=== PATIENT | female | born 1940 | race Caucasian/White ===

== ENCOUNTER 2023-09-15 22:10 | Observation (INO) | payer OTHER, SELFPAY ==
[2023-09-15 10:06] VITALS: BP 114/55
--- NOTE | 2023-09-15 13:03 | ED.GENMED ---
History of Present Illness
General
Chief Complaint: Back Pain
Source: patient
Exam Limitations: none
Time Seen by Provider: 09/15/23 12:11
Nursing documentation reviewed up to this point in time: agreed with
Travel History
Have you had any contact with someone who has COVID-19?: No
Do you have any symptoms of coronavirus? Fever > 100 degrees, chills, cough, shortness of breath, sore throat, loss of taste or smell, muscle aches, or headache?: No
History of Present Illness
History of Present Illness:
83-year-old female with past medical history of mitral regurg memory loss multiple back surgeries most recently [address] Bains. Patient is presenting with concerns of her right leg giving out when going down 3 steps landed on her right
knee. Was post to have a follow-up with spine surgeon today but missed this due to coming to the ER also claims that she soiled herself after falling. She has ongoing shooting pain down the right leg. Claims that she does feel some weakness down
the right leg denies any changes in sensation. 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 Claims that she has been able to urinate. Denies any chest pain fevers.
Past History
Past History
ED Past Medical History: Cancer (endometrial), HTN and Other (chronic back pain, restless leg)
ED Past Surgical History: Appendectomy, Gynecological and Other (cataracts)
Social History
Tobacco: Non-smoker
Alcohol: None
Drug: None
Personal:
Living: with family
Review of Systems
Review of Systems
Allergies reviewed?: Yes
All Other Systems: ROS reviewed and negative except as documented in HPI and ROS
Phy Exam
Physical Exam
Physical Exam:
GENERAL: Alert , in no apparent distress
EYE: pupils equal and reactive
NECK: Supple, no significant adenopathy.
ENT: o/p clr, mmm.
CARDIAC: Regular rate and rhythm .
LUNGS: Clear breath sounds bilaterally, no acute respiratory distress, no wheezes/rales/rhonchi
ABDOMEN: Soft, without focal tenderness, no r/g, no cvat
NEUROLOGICAL: Alert and oriented, no focal neuro deficits
SKIN: Warm and dry, skin intact.
MUSCULOSKELETAL: Dropfoot right foot slightly flexion and knee movement. No decree sensation claims that sensation is normal bilaterally. Normal appearing back no redness or warmth does have some tenderness to the right anterior knee and tibial
plateau decreased strength of the right leg compared to the left with hip d no edema, well perfused.
PSYCH: Normal and appropriate interaction.
Course
Orders/Labs/Results
Orders:
Orders
09/15/23 12:46
CR Knee- Right 4 Or More View* Urgent
Comment:
Reason For Exam: right knee pain
09/15/23 12:50
Bladder Scan- Treatment ONCE
09/15/23 13:03
Lumbar Spine, 2 or 3 View [CR Lumbar Spine 2 Or 3 Views] Urgent
Comment:
Reason For Exam: back pain surgery 1 month ago fall
09/15/23 14:45
Urinalysis Reflex To Culture Urgent
Date Specimen was Collected: 09/15/23
Time Specimen was Collected: 14:42
Urine Microscopic Reflex Cult Urgent
Urine Culture Urgent
SEAN Source: U
Specimen Description:
Date Specimen was Collected: 09/15/23
Time Specimen was Collected: 14:42
09/15/23 Dinner
Regular
At Your Request: Full Participation
09/15/23 15:59
Tramadol HCl [Ultram] 50 mg PO NOW STA
09/15/23 16:05
CT Lumbar Spine W/o Iv Contras Urgent
Comment:
Reason For Exam: recent surgery back pain, surgery recomending CT
CT Thoracic Spine W/o Iv Contr Urgent
Comment:
Reason For Exam: recent surgery back pain, surgery recomending CT
09/15/23 20:21
Oxycodone/Acetaminophen [Percocet 5/325] 1 tablet PO NOW STA
09/15/23 20:44
BMP [Basic Metabolic Panel] Urgent
CBC/With Diff [Complete Blood Count/With Diff] Urgent
09/15/23 21:35
Admit/Transfer Patient As Directed
Co-Sign Provider:
Level of Care: Observation services
Assign to:: Medical/Surgical
Physician / Group: ki bal
Diagnosis: fall with r knee pain acute on chronic amb dysfunction
Code Status As Directed
Resuscitation Status: Full Code
09/15/23 21:41
Ice Application [Cold Application] As Directed
Location: right knee
Frequency: Intermittent q4h
Duration of Application: No longer than 20 minutes
Method of Delivery: Ice packs
09/15/23 21:46
Cephalexin Monohydrate [Keflex] 500 mg PO NOW STA
09/15/23 22:37
Acetaminophen [Tylenol] 650 mg PO Q4HPRN PRN
Melatonin 5 mg PO HSPRN PRN
Tramadol HCl [Ultram] 50 mg PO Q6HPRN PRN
09/15/23 22:37
Activity As Directed
Activity Level: With Assistance
Comment: uses walker
Pneumatic Compression Sleeves As Directed
Type: Knee high
Vital Signs As Directed
Frequency: Per unit guidelines
Wound Care As Directed
Location of Wound: right knee abrasion
Treatment of Wound: wash with soap and water apply bandaid
Ot Eval And Treat Routine
Pt Eval And Treat Routine
Activity Level: With Assistance
DX Deep Vein Thrombosis Video Routine
09/15/23 23:00
Pramipexole [Mirapex, Generic] 3 mg PO HS
09/16/23 08:00
Carvedilol [Coreg] 3.125 mg PO BID
Cephalexin Monohydrate [Keflex] 500 mg PO QID
Cyanocobalamin [Vitamin B-12] 1,000 mcg PO DAILY
Multivitamin [Theragran] 1 tablet PO DAILY
Pyridoxine [Vitamin B-6] 100 mg PO DAILY
vitamin A-vitamin C-vit E-min 1 tablet PO DAILY
Abnormal Lab Results
09/15/23 09/15/23
14:45 20:44
RBC 3.27 L 10^6/uL
(4.20-5.40)
Hgb 9.0 L g/dL
(12.0-16.0)
Hct 27.9 L %
(37.0-47.0)
MCHC 32.3 L g/dL
(33.0-37.0)
Absolute Lymphs (auto) 0.8 L 10^3/uL
(1.2-3.4)
Neutrophils % 76.1 H %
(42.2-75.2)
Lymphocytes % 13.7 L %
(20.5-51.1)
Sodium 133 L mmol/L
(135-145)
BUN 24 H mg/dl
(7-17)
Glucose 120 H mg/dl
(70-99)
Urine Ketones Trace A
(Negative)
Ur Occult Blood Reflex 3+ A
(Negative)
Leukocyte Esterase Rfl 2+ A
(Negative)
Urine RBC 30-40 A /HPF
(0-2)
Urine WBC (Reflex) 30-40 A /HPF
(0-5)
Urine Bacteria (Reflex) Many A
(Negative)
09/15/23 20:44
09/15/23 20:44
Vital Signs
Initial and Last Documented VS:
Initial Vital Signs
Temp Pulse Resp BP Pulse Ox
99.1 F 89 18 114/55 99
09/15/23 10:06 09/15/23 10:06 09/15/23 10:06 09/15/23 10:06 09/15/23 10:06
Last Documented Vital Signs
Temp Pulse Resp BP Pulse Ox
98.3 F 74 16 122/67 98
09/18/23 07:24 09/18/23 07:24 09/18/23 07:24 09/18/23 07:24 09/18/23 07:24
MDM/Problems Addressed
MDM/Problems Addressed:
83-year-old female presenting to the emergency department today with concerns of right leg giving out falling down 3 steps landing on her right knee prior to arrival denies hitting her head or losing consciousness not on blood thinners. Does have
some mild trauma on her right knee. Was unable to stand up was brought in by EMS. Patient did recently have a back surgery [address] Bains denies any complications from this recently discharged from acute rehab 1 week ago. There is
that she soiled her self when she was on the ground. Patient assessed here does have good rectal tone able to urinate well comfortable in general but unable to ambulate secondary to pain. Her surgeon was contacted they recommended getting a CT
scan to evaluate the surgical correction this without emergent findings patient be admitted concerning she is unable to ambulate for further pain management and physical therapy evaluation.
*Critical Care Note
Total Time (30-74mins, 75-104mins- exclusive of procedures): Not Applicable
ED Attending Note
-
Portions of this chart may have been created with voice recognition software.� Occasional wrong word or��sound alike� substitutions may have occurred due to the inherent limitations of voice recognition software.
Discharge Plan
Departure
Patient Disposition: Admit
Date of Disposition: 09/15/23
Time of Disposition: 20:49
Admit to: Med/Surg
Admit to doctor: Sujit
Presentation/result/management discussed w/ accepting MD/DO: Hospitalist
Patient with high blood pressure during this ER visit?: No
Condition: Good
Covid-19: Not Applicable
Discharge Problem:
Back pain, Ambulatory dysfunction
Interventions
Interventions:
*Risk Screen - Suicide Last Done: 09/15/23 22:44
*General Assessment Last Done: 09/15/23 19:03
*Neglect/Abuse Screening Last Done: 09/15/23 19:03
ED- Fall Risk Assessment Last Done: 09/15/23 22:46
*ED COVID-19 Vaccine History Last Done: 09/15/23 22:46
*Nursing Disposition Last Done: 09/15/23 22:46
ED-Musculoskeletal Assessment Last Done: 09/15/23 19:03
Discharge Date and Time
Discharge Date/Time: 09/15/23 22:47
[2023-09-15 15:00] LABS: Urine Albumin Negative (Neg - Trace); Urine Bilirubin Negative (Negative); Urine Character Very Cloudy (Clear); Urine Color Yellow; Urine Glucose Negative (Negative); Urine Ketone Trace (Negative); Urine Leukocyte 2+ (Negative); Urine Nitrite Negative (Negative); Urine Occult Blood 3+ (Negative); Urine Specific Gravity 1.015 (<1.030); Urine Urobilinogen Negative (Neg - 1+)
[2023-09-15 15:10] LABS: Urine Squamous Cell 16-20 /LPF (Few)
[2023-09-15 15:15] LABS: Urine Bacteria Many (Negative); Urine Red Blood Cell 30-40 /HPF (0-2); Urine White Cell 30-40 /HPF (0-5)
[2023-09-15] MEDS: ULTRAM 50 MG PO (16:19)
[2023-09-15 16:36] VITALS: BP 137/64
[2023-09-15 18:46] VITALS: BP 117/54
[2023-09-15 20:02] VITALS: BP 132/60
--- NOTE | 2023-09-15 20:12 | EDRN ---
Report received, introduced myself to patient, she needed to have a bowl movement, was placed on bed mcgrath, small soft formed stool noted and some urine, patient cleaned up, new linen placed on bed, patient does not feel she can get up and ambulate to
go home, Ed, PA aware
[2023-09-15 20:51] LABS: % Basophils 0.2 % (0-2); % Eosinophils 1.5 % (0-6); % Immature Granulocytes 0.3 % (0-0.5); % Lymphocytes 13.7 % (20.5-51.1); % Monocytes 8.2 % (1.7-9.3); % Neutrophils 76.1 % (42.2-75.2); Absolute Eosinophils 0.1 10^3/uL (0-0.7); Absolute Lymphocytes 0.8 10^3/uL (1.2-3.4); Absolute Monocytes 0.5 10^3/uL (0.1-0.6); Absolute Neutrophils 4.7 10^3/uL (1.4-6.5); Hematocrit 27.9 % (37.0-47.0); Mean Corp Hgb Conc. 32.3 g/dL (33.0-37.0); Mean Corpuscular Hgb 27.5 pg (27.0-31.0); Mean Corpuscular Volume 85.3 fL (81.0-99.0); Mean Platelet Volume 9.3 fL (7.4-10.4); Nucleated Red Blood Cells % 0 %; Platelet Count 261 10^3/uL (130-400); Red Blood Cell Count 3.27 10^6/uL (4.20-5.40); Red Cell Dist. Width 14.3 % (11.5-14.5); White Blood Cell Count 6.1 10^3/uL (4.8-10.8)
[2023-09-15 21:05] LABS: Blood Urea Nitrogen 24 mg/dl (7-17); Calcium 8.9 mg/dl (8.4-10.2); Carbon Dioxide 29 mmol/L (22-30); Chloride 99 mmol/L (98-107); Glucose 120 mg/dl (70-99); Potassium 4.1 mmol/L (3.5-5.1); Sodium 133 mmol/L (135-145); eGFR > 60.00
--- NOTE | 2023-09-15 21:06 | HPS.HSE ---
Addendum entered and electronically signed by Luis Angel Orellana MD 09/15/23 21:50:
Patient seen and examined independently with PILLOWCASE CUTTER. 83-year-old female past medical history of chronic back pain status post laminectomy 1 month ago, right foot drop, restless leg syndrome, presenting after her right leg gave out going down 3 steps
landing on her right knee. Complaining of pain of her right knee at this time. No back pain. Knee x-ray negative. Lumbar spine x-ray/lumbar spine CT/thoracic spine CT negative for acute pathology. Urinalysis shows evidence of UTI although no
symptoms. Continue Tylenol and tramadol for pain. PT/OT. Urine culture Keflex for UTI.
Original Note:
Family Physician
-
Family Physician: Mini Diaz
Chief Complaint
-
right leg gave out , fall right knee pain
History of Present Illness
83-year-old female complaining of her right leg giving out while going down 3 steps landing on her bent right knee in the garage. She states her left buttocks was on 1 part of the step and her knee was bent on the ground. She was unable to lift
herself up and her was unable to lift her up. She did not attempt to extend her knee and left it bent until EMS arrived. She states she has been using a walker since January 2023 after a lumbar laminectomy surgery. She has a right knee
contusion with right lower anterior justice abrasion. She was able to stand at the bedside holding onto my arm lifting both legs and walking to the left but she is very anxious and worried about falling. She is status post spinal fusion L2 S2 on 08/[address] Bains at [facility] and was discharged from rehab approximately 1 week ago. She was due to have follow-up appointment with a spinal surgeon today but came to ER after her fall. She reports a chronic dropfoot on the right leg since
prior to January 2023 of unknown origin. She states she had the urge to go to the bathroom and was incontinent of stool because she was unable to get up and walk. She denies fever, chills, chest pain, palpitations, shortness of breath, cough,
abdominal pain, nausea, vomiting, diarrhea. She has past medical history of hypertension, anemia, B12 deficiency, chronic back pain, restless leg syndrome, insomnia, chronic dropfoot right leg.
Medical History
Past Medical History
Past Medical History: Reports Other
Additional Past Medical History:
hypertension
anemia, B12 deficiency
chronic back pain
restless leg syndrome,
insomnia
chronic dropfoot right leg
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
Hx endometrial cancer status post hysterectomy 2017 with chemo, radiation, proton therapy
Past Surgical History: Reports Other
Additional Past Surgical History:
Status post spinal fusion L2-S2 on 08/12 Dr ac Snyder
Laminectomy lumbar January 2023
endometrial cancer status post hysterectomy 2016
Social History
Tobacco: Non-smoker
Alcohol: Occasional (Wine)
Drug: None
Personal:
Living: With Family ( [place])
Employment: Retired
Family History
Family History: Other (Father unknown, mother old age 96)
Allergies / Home Medications
Allergies reflects when Allergies were last updated in [facility].
Home Medications with original date entered in [facility]
Allergy/Medication List:
Allergies
Allergy/AdvReac Type Severity Reaction Status Date / Time
No Known Allergies Allergy Verified 09/15/23 10:06
Home Medications
pramipexole 1.5 mg tablet 3 mg PO HS Muscle spasms 07/17/22
Vitamin D3 1 tab PO SA Supplement 01/08/23
cyanocobalamin (vitamin B-12) 1,000 mcg tablet (Vitamin B-12) 1,000 mcg PO DAILY Supplement 01/08/23
melatonin 5 mg tablet 5 mg PO HS PRN sleep 01/08/23
pyridoxine (vitamin B6) 100 mg tablet (Vitamin B-6) 100 mg PO DAILY Supplement 01/08/23
vitamin A-vitamin C-vit E-min tablet 1 tab PO DAILY Supplement 01/08/23
carvedilol 3.125 mg tablet 3.125 mg PO BID 09/15/23
cyanocobalamin (vitamin B-12) 1,000 mcg/mL injection solution 1,000 mcg IM MONTHLY 09/15/23
[id number]-jbj-[id number] 0.4 mg-calcium 162 mg-iron 18 sc-[id number]-mxjspf tablet 1 tab PO DAILY 09/15/23
tramadol 50 mg tablet 50 mg PO Q6H PRN moderate pain 09/15/23
Review of Systems
-
History Source: Patient
A 12 point ROS was completed and negative except as noted: Yes
Constitutional: Denies Fever or Chills
EENT: Denies Sore Throat or Runny Nose
Respiratory: Denies Cough or Trouble Breathing
Cardiac: Denies Chest Pain, Diaphoresis, Palpitations or Syncope
Abdomen/GI: Denies Abdominal Pain, Nausea, Vomiting, Diarrhea, Constipated, Bloody Stools or Black Stools
: Denies Dysuria, Frequency, Flank Pain, Incontinence or Difficulty Voiding
Musculoskeletal: Reports Joint Pain (Right knee pain, slight edema status post fall) and Other
Skin: Reports Other (Right knee contusion/anterior tib-fib abrasion); Denies Itching or Rash
Neurological: Reports Weakness (Brief episode right leg prior to fall); Denies Dizzy or Headache
Endocrine: Reports No Symptoms
Hematologic/Lymphatic: Reports No Symptoms
Psych: Reports Anxiety
Physical Exam
Vital Signs
Vital Signs
Temp Pulse Resp BP Pulse Ox
99.1 F 83 16 117/54 97
09/15/23 10:06 09/15/23 18:46 09/15/23 18:46 09/15/23 18:46 09/15/23 18:46
Physical Exam
General: Conversant, Pain and Other (Anxious); No Fever
HEENT: NormoCephalic, Anicteric, Moist mucous membranes, Atraumatic, PERRLA, Hi-Nella Conjunctivae, No Ptosis and Neck Nontender
Respiratory: Clear; No Wheezes, Rales or Rhonchi
Cardiac: S1/S2 and Regular Rhythm; No Murmur, Rub, Gallop or Peripheral Edema
Breast: Deferred by me
GI: Soft, Non Tender, Non Distended, Normal Bowel Sounds and No Hepatosplenomegaly
Rectal: Deferred by Provider
Genito-urinary: Deferred by me
Musculoskeletal: No Clubbing, No Cyanosis and Edema, Right Lower Extremity (Right knee contusion/anterior tib-fib abrasion); No Edema, Left Upper Extremity, Edema, Right Upper Extremity or Edema, Left Lower Extremity
Skin: Warm and Dry; No Rash
Neuro: AO x 3, No Motor Deficits, Nonfocal/grossly intact, Cranial Nerves Intact and No Sensory Deficits; No Slurred Speech, Facial Droop or Tremors
Psych: Anxious
Laboratory Results
-
09/15/23 20:44
09/15/23 20:44
Data Reviewed
-
Diagnostic Radiology: Report Reviewed by me
CT Scan: Report Reviewed by me
Lab Data: Labs Reviewed by me
Impression/Plan
-
Impression/plan:
Observation MedSurg
#Acute on chronic ambulatory dysfunction/right knee contusion/abrasion
#Chronic dropfoot right leg unknown etiology prior to January 2023
#Status post spinal fusion L2-S2 on 08/12 Dr ac Snyder
-Continue tramadol 50 mg every 6 hours as needed pain
-Local wound care with soap and water, apply Band-Aid
- ice to right knee
-Tylenol as needed
-PT/OT/case management consult
-Patient has home care with [facility]
CT lumbar spine without contrast:
Limited study due to beam artifact, extensive metal hardware from L2 to sacrum with placement of disc spacers at L3-L4, L4-L5, and L5-S1. L4 inferior endplate and L5 superior endplate irregularity similar to prior MRI
CT thoracic spine: Degenerative changes no acute fractures
Lumbar spine x-ray: Status post spinal fusion L2-S2 improved alignment from previous MRI 6 months ago
Right knee x-ray: Significant DJD. Small joint effusion
#Pyuria Acute
-Follow urine culture
- keflex 500 mg q6h
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
#Hx endometrial cancer status post hysterectomy 2016 with chemo, radiation, proton therapy
Used to take gabapentin but no longer does
-Continue tramadol every 6 as needed per med list
#Anemia-normocytic
Hgb 9 baseline appears 10
-Continue B12 supplement daily
#HTN benign
117/54
Continue carvedilol 3.125 mg p.o. twice daily
#Restless leg syndrome
-Continue pramipexole 3 mg at bedtime
#Insomnia
-Continue melatonin 5 mg at bedtime as needed
DVT prophylaxis
SCDs
full code
[2023-09-15] MEDS: PERCOCET 5/325 1 TABLET PO (21:18)
[2023-09-15 21:25] VITALS: BP 130/60
--- NOTE | 2023-09-15 21:38 | EDRN ---
Ghazala ENGINEERING DOCUMENTATION SPECIALIST in at bedside working on admission, Ghazala wanted to stand patient, patient was able to stand and lift both legs with ease and no pain, patient then back in bed resting comfortably with call sheriff in reach, will be admitted and PT see her
tomorrow.
[2023-09-15 22:44] VITALS: BMI 22.2
[2023-09-15 22:53] VITALS: BP 121/54
[2023-09-15] MEDS: MIRAPEX, GENERIC 3 MG PO (23:10)
[2023-09-15] MEDS: KEFLEX 500 MG PO (23:10)
--- NOTE | 2023-09-16 01:05 | PTCARENOTE ---
Patient received in bed from ED at 2044. AAOx3, Pt pulled over from stretcher to bed. Oriented to room and call sheriff.
[2023-09-16 07:00] VITALS: BP 121/57
[2023-09-16] MEDS: VITAMIN B-6 100 MG PO (09:33)
[2023-09-16] MEDS: KEFLEX 500 MG PO ×4 (09:33→21:04)
[2023-09-16] MEDS: THERAGRAN 1 TABLET PO (09:33)
[2023-09-16] MEDS: COREG 3.125 MG PO (09:34)
[2023-09-16] MEDS: VITAMIN B-12 1000 MCG PO (09:34)
--- NOTE | 2023-09-16 10:16 | W.PN.HOSP.TC ---
Today's Communication/Plan
-
see outlined plan
Assessment / Plan
Assessment / Plan
Assessment:
Acute on chronic ambulatory dysfunction/right knee contusion/abrasion
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
Status post spinal fusion L2-S2 on 08/12 (Dr Bains with [facility])
- CT L/T spine without acute fractures, intact hardware
- R knee Xray with DJD, small effusion, no fracture
- check L foot xray to evaluate toe/foot pain
- Prn Tramadol for pain
- ICE and Tylenol as well
- PT/OT - current with [facility] and recent rehab at [facility]
UTI with incontinence
- continue Keflex, await culture
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
Hx endometrial cancer status post hysterectomy 2017 with chemo, radiation, proton therapy
- Used to take gabapentin but no longer does
- Continue tramadol every 6 as needed per med list
Anemia-normocytic
- Hgb 9 baseline appears 10. monitor Hb
- Continue B12 supplement daily
Essential HTN
- continue BB Coreg
RLS - continue Pramipexole HS
Insomnia
- continue melatonin 5 mg at bedtime as needed
DVT prophylaxis: SCDs
Code: Full
Anticipated Discharge: Within 24 hours
Subjective/Interval History
-
Date of Service: September 16, 2023
reports pain improving, able to bend knee better
reports some L great toe pain - injured it during fall
denies any other complaints
Objective Data
-
Vital Signs:
Vital Signs
Temp Pulse Resp BP Pulse Ox
99.2 F 84 18 121/59 97
09/16/23 07:00 09/16/23 09:34 09/16/23 07:00 09/16/23 09:34 09/16/23 07:00
I&O
09/15/23 09/16/23 09/17/23
06:59 06:59 06:59
Intake Total 120 / 120
Output Total 0 / 0
Balance 120 / 120
Physical Exam
-
General: No Apparent Distress
HEENT: Normocephalic and Atraumatic
Respiratory: Negative Wheezes or Rales
Cardiac: Regular Rhythm and S1/S2
GI: Soft
Genito-urinary: No Costovertebral Tender
Musculoskeletal: No Edema and Other (R knee ROM intact, no effusion. L great toe with tenderness with extension/flexion)
Neuro: AO x 3
Psych: Calm
Data Reviewed
-
Total Time Spent with Patient (in minutes): 45
Labs: Labs Reviewed by me
--- NOTE | 2023-09-16 15:42 | CM ---
CHart reviewed. Met with Pt at bedside
Pt lives with her in a 2 story home, currently has a FF set up
Prior to admission pt needed some assist. Ambulates with rolling walker, preparing small meals, able to perform adl's
DME includes a cane, rolling walker, commode, shower chair
Was at [facility] rehab earlier in year after a fall
Current with [facility]
Will have ride at d/c
PCP - Dr Natividad Diaz
Pharm - [facility]
Plan - TBD pending PT/OT recs
[2023-09-16 15:55] VITALS: BP 115/52
[2023-09-16 16:04] VITALS: BP 125/65; PULSE 88
[2023-09-16 16:11] VITALS: BP 128/65; PULSE 88
[2023-09-16] MEDS: COREG PO (20:34)
[2023-09-16 20:35] VITALS: BP 100/59
[2023-09-16] MEDS: ULTRAM 50 MG PO (21:04)
[2023-09-16] MEDS: MIRAPEX, GENERIC 3 MG PO (21:04)
[2023-09-16 22:30] VITALS: BP 123/58
[2023-09-17] MEDS: ULTRAM 50 MG PO (06:54)
[2023-09-17 07:00] VITALS: BP 143/78
[2023-09-17] MEDS: KEFLEX 500 MG PO ×4 (08:21→21:23)
[2023-09-17] MEDS: VITAMIN B-12 1000 MCG PO (08:21)
[2023-09-17] MEDS: THERAGRAN 1 TABLET PO (08:21)
[2023-09-17] MEDS: COREG 3.125 MG PO ×2 (08:21→20:21)
[2023-09-17] MEDS: TYLENOL 650 MG PO (08:22)
[2023-09-17] MEDS: VITAMIN B-6 100 MG PO (08:22)
[2023-09-17 08:55] LABS: Hematocrit 29.4 % (37.0-47.0); Hemoglobin 9.4 g/dL (12.0-16.0); Mean Corpuscular Hgb 27.5 pg (27.0-31.0); Mean Platelet Volume 9.5 fL (7.4-10.4); Platelet Count 248 10^3/uL (130-400); Red Blood Cell Count 3.42 10^6/uL (4.20-5.40); Red Cell Dist. Width 14.3 % (11.5-14.5); White Blood Cell Count 4.4 10^3/uL (4.8-10.8)
[2023-09-17 09:21] LABS: Blood Urea Nitrogen 17 mg/dl (7-17); Calcium 8.5 mg/dl (8.4-10.2); Carbon Dioxide 29 mmol/L (22-30); Chloride 103 mmol/L (98-107); Estimated Creatinine Clearance 60 ml/min; Glucose 91 mg/dl (70-99); Sodium 134 mmol/L (135-145); eGFR > 60.00
--- NOTE | 2023-09-17 10:36 | W.PN.HOSP.TC ---
Today's Communication/Plan
-
Medically stable for DC pending SNF
Assessment / Plan
Assessment / Plan
Assessment:
Acute on chronic ambulatory dysfunction/right knee contusion/abrasion
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
Status post spinal fusion L2-S2 on 08/12 (Dr Bains with [facility])
- CT L/T spine without acute fractures, intact hardware
- R knee Xray with DJD, small effusion, no fracture
- suspect weakness/fall maybe related to UTI
- Prn Tramadol for pain
- ICE and Tylenol as well
- PT/OT - current with [facility] and recent rehab at [place]. SNF recommended and pt/family agreeable.
UTI with incontinence
- continue Keflex, day 2
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
Hx endometrial cancer status post hysterectomy 2017 with chemo, radiation, proton therapy
- Used to take gabapentin but no longer does
- Continue tramadol every 6 as needed per med list
Anemia-normocytic
- Hgb 9 baseline appears 10. monitor Hb
- Continue B12 supplement daily
Essential HTN
- continue BB Coreg
RLS - continue Pramipexole HS
Insomnia
- continue melatonin 5 mg at bedtime as needed
DVT prophylaxis: SCDs
Code: Full
Anticipated Discharge: 24 - 48 hours
Subjective/Interval History
-
Date of Service: September 17, 2023
no new complaints, pain controlled
agreeable to SNF
Objective Data
-
Labs:
Laboratory Results
09/17/23
07:59
WBC 4.4 L
Hgb 9.4 L
Hct 29.4 L
Plt Count 248
Sodium 134 L
Potassium 4.0
Chloride 103
Carbon Dioxide 29
BUN 17
Creatinine 0.7
Glucose 91
Calcium 8.5
Vital Signs:
Vital Signs
Temp Pulse Resp BP Pulse Ox
97.9 F 82 18 143/78 99
09/17/23 07:00 09/17/23 07:00 09/17/23 07:00 09/17/23 07:00 09/17/23 08:20
I&O
09/16/23 09/17/23 09/18/23
06:59 06:59 06:59
Intake Total 120 / 120 1060 / 1060
Output Total 0 / 0
Balance 120 / 120 1060 / 1060
Physical Exam
-
General: No Apparent Distress
HEENT: Normocephalic and Atraumatic
Respiratory: Negative Wheezes or Rales
Cardiac: Regular Rhythm and S1/S2
GI: Soft and Nontender
Genito-urinary: No Costovertebral Tender
Musculoskeletal: No Edema
Neuro: AO x 3
Psych: Calm
Data Reviewed
-
Total Time Spent with Patient (in minutes): 45
Labs: Labs Reviewed by me
--- NOTE | 2023-09-17 10:52 | CM ---
Patient seen bedside.
PT/OT recommending skilled rehab.
Discussed options.
Referrals placed.
Plan: skilled rehab when stable, patient will require insurance auth.
[2023-09-17 15:54] VITALS: BP 105/48
[2023-09-17] MEDS: MIRAPEX, GENERIC 3 MG PO (21:23)
[2023-09-17 22:30] VITALS: BP 114/57
[2023-09-18] MEDS: ULTRAM 50 MG PO ×2 (01:08→17:29)
[2023-09-18 07:24] VITALS: BP 122/67
[2023-09-18 08:11] LABS: Hematocrit 29.5 % (37.0-47.0); Hemoglobin 9.7 g/dL (12.0-16.0); Mean Corp Hgb Conc. 32.9 g/dL (33.0-37.0); Mean Corpuscular Volume 85.3 fL (81.0-99.0); Mean Platelet Volume 9.3 fL (7.4-10.4); Platelet Count 253 10^3/uL (130-400); Red Blood Cell Count 3.46 10^6/uL (4.20-5.40); White Blood Cell Count 4.9 10^3/uL (4.8-10.8)
[2023-09-18 08:43] LABS: Blood Urea Nitrogen 20 mg/dl (7-17); Calcium 8.7 mg/dl (8.4-10.2); Carbon Dioxide 29 mmol/L (22-30); Chloride 101 mmol/L (98-107); Estimated Creatinine Clearance 60 ml/min; Glucose 94 mg/dl (70-99); Potassium 4.4 mmol/L (3.5-5.1); Sodium 133 mmol/L (135-145); eGFR > 60.00
[2023-09-18] MEDS: KEFLEX 500 MG PO ×4 (08:51→21:28)
[2023-09-18] MEDS: COREG 3.125 MG PO ×2 (08:51→20:14)
[2023-09-18] MEDS: VITAMIN B-12 1000 MCG PO (08:51)
[2023-09-18] MEDS: VITAMIN B-6 100 MG PO (08:51)
[2023-09-18] MEDS: THERAGRAN 1 TABLET PO (08:51)
--- NOTE | 2023-09-18 11:54 | CM ---
Addendum entered by Dinorah Rodriguez 09/18/23 13:40:
clinicals faxed.
Addendum entered by Dinorah Rodriguez 09/18/23 13:21:
[employer] auth initiated- reference #[id number]
Original Note:
Patient accepted for bed at [facility] for tomorrow.
[employer] auth to be initiated.
PT/OT (P).
[facility] NPI# [id number] or [id number]
Dr Caruso [id number]
Auth to [facility] supervisior over weekend- [phone]
report# [phone]

Plan: PR once insurance authorization obtained.
--- NOTE | 2023-09-18 12:04 | W.PN.HOSP.TC ---
Today's Communication/Plan
-
Medically stable for SNF placement. CM aware.
Assessment / Plan
Assessment / Plan
Assessment:
Acute on chronic ambulatory dysfunction/right knee contusion/abrasion
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
Status post spinal fusion L2-S2 on 08/12 (Dr Bains with [facility])
- CT head negative for CVA to explain weakness
- CT L/T spine without acute fractures, intact hardware
- R knee Xray with DJD, small effusion, no fracture
- suspect weakness/fall maybe related to UTI
- Prn Tramadol for pain
- ICE and Tylenol as well
- PT/OT - current with [facility] and recent rehab at [place]. SNF recommended and pt/family agreeable.
UTI with incontinence
- continue Keflex, day 09/21
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
Hx endometrial cancer status post hysterectomy 2017 with chemo, radiation, proton therapy
- Used to take gabapentin but no longer does
- Continue tramadol every 6 as needed per med list
Anemia-normocytic
- Hgb 9 baseline appears 10. monitor Hb
- Continue B12 supplement daily
Essential HTN
- continue BB Coreg
RLS - continue Pramipexole HS
Insomnia
- continue melatonin 5 mg at bedtime as needed
DVT prophylaxis: SCDs
Code: Full
Dispo: Medically stable for SNF placement. CM aware.
Anticipated Discharge: Within 24 hours
Subjective/Interval History
-
Date of Service: September 18, 2023
no new complaints
ambulated with PT/OT today
pending SNF placement
Objective Data
-
Labs:
Laboratory Results
09/18/23
07:45
WBC 4.9
Hgb 9.7 L
Hct 29.5 L
Plt Count 253
Sodium 133 L
Potassium 4.4
Chloride 101
Carbon Dioxide 29
BUN 20 H
Creatinine 0.7
Glucose 94
Calcium 8.7
Vital Signs:
Vital Signs
Temp Pulse Resp BP Pulse Ox
98.3 F 74 16 122/67 98
09/18/23 07:24 09/18/23 07:24 09/18/23 07:24 09/18/23 07:24 09/18/23 07:24
I&O
09/17/23 09/18/23 09/19/23
06:59 06:59 06:59
Intake Total 1060 / 1060 360 / 360
Output Total 500 / 500
Balance 1060 / 1060 -140 / -140
Physical Exam
-
General: No Apparent Distress
HEENT: Normocephalic and Atraumatic
Respiratory: Negative Wheezes or Rales
Cardiac: Regular Rhythm and S1/S2
GI: Soft
Genito-urinary: No Costovertebral Tender
Neuro: AO x 3
Psych: Calm
Data Reviewed
-
Total Time Spent with Patient (in minutes): 40
Labs: Labs Reviewed by me
[2023-09-18 13:28] VITALS: BP 112/60; BP 132/80; PULSE 94
[2023-09-18 15:42] VITALS: BP 122/67
[2023-09-18 20:14] VITALS: BP 115/59
[2023-09-18] MEDS: MIRAPEX, GENERIC 3 MG PO (21:28)
[2023-09-18 23:45] VITALS: BP 110/56
[2023-09-19 07:00] VITALS: BP 107/63
[2023-09-19 08:45] LABS: Hemoglobin 10.7 g/dL (12.0-16.0); Mean Corp Hgb Conc. 32.4 g/dL (33.0-37.0); Mean Corpuscular Hgb 28.1 pg (27.0-31.0); Mean Corpuscular Volume 86.6 fL (81.0-99.0); Mean Platelet Volume 9.5 fL (7.4-10.4); Platelet Count 302 10^3/uL (130-400); Red Blood Cell Count 3.81 10^6/uL (4.20-5.40); Red Cell Dist. Width 14.2 % (11.5-14.5); White Blood Cell Count 5.5 10^3/uL (4.8-10.8)
[2023-09-19 09:15] LABS: Blood Urea Nitrogen 25 mg/dl (7-17); Calcium 9.4 mg/dl (8.4-10.2); Carbon Dioxide 29 mmol/L (22-30); Chloride 98 mmol/L (98-107); Estimated Creatinine Clearance 60 ml/min; Glucose 114 mg/dl (70-99); Potassium 4.3 mmol/L (3.5-5.1); Sodium 135 mmol/L (135-145); eGFR > 60.00
[2023-09-19] MEDS: VITAMIN B-6 100 MG PO (09:24)
[2023-09-19] MEDS: THERAGRAN 1 TABLET PO (09:24)
[2023-09-19] MEDS: KEFLEX 500 MG PO ×4 (09:24→21:27)
[2023-09-19] MEDS: COREG 3.125 MG PO ×2 (09:24→19:45)
[2023-09-19] MEDS: VITAMIN B-12 1000 MCG PO (09:24)
[2023-09-19 11:00] VITALS: BP 121/65; BP 125/58; BP 127/62; PULSE 115; PULSE 85; PULSE 94
--- NOTE | 2023-09-19 11:03 | CM ---
Addendum entered by Dinorah Rodriguez 09/19/23 14:21:
[facility] to [facility], spoke with vanessa Davis pending.
All clinicals received and being reviewed.
CM asked when to expect vanessa and was told to call back Thursday.
Original Note:
TC to [facility], their system is down, Rasheeda/intake rep refused to forward to supervisor cell maintenance.
instructed to call back in 1 hour.
CM will f/u
--- NOTE | 2023-09-19 12:21 | W.PN.HOSP.TC ---
Today's Communication/Plan
-
dizziness: decrease Tramadol and check orthostatics, add compression stockings
await SNF
Assessment / Plan
Assessment / Plan
Assessment:
Acute on chronic ambulatory dysfunction/right knee contusion/abrasion
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
Status post spinal fusion L2-S2 on 08/12 (Dr Bains with [facility])
- CT head negative for CVA to explain weakness
- CT L/T spine without acute fractures, intact hardware
- R knee Xray with DJD, small effusion, no fracture
- suspect weakness/fall maybe related to UTI
- Prn Tramadol for pain
- ICE and Tylenol as well
- PT/OT - current with [facility] and recent rehab at [place]. SNF recommended and pt/family agreeable.
Dizziness, transient
- check orthostatics; add compression therapy
- decrease Tramadol to 25mg
UTI with incontinence
- continue Keflex, day 10/22
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
Hx endometrial cancer status post hysterectomy 2016 with chemo, radiation, proton therapy
- Used to take gabapentin but no longer does
- Continue tramadol every 6 as needed per med list
Anemia-normocytic
- Hgb 9 baseline appears 10. monitor Hb
- Continue B12 supplement daily
Essential HTN
- continue BB Coreg
RLS - continue Pramipexole HS
Insomnia
- continue melatonin 5 mg at bedtime as needed
DVT prophylaxis: SCDs
Code: Full
Dispo: Medically stable for SNF placement. CM aware.
Anticipated Discharge: Within 24 hours
Subjective/Interval History
-
Date of Service: September 19, 2023
reports some dizziness last evening into this morning
BPs stable
Objective Data
-
Labs:
Laboratory Results
09/19/23
08:22
WBC 5.5
Hgb 10.7 L
Hct 33.0 L
Plt Count 302
Sodium 135
Potassium 4.3
Chloride 98
Carbon Dioxide 29
BUN 25 H
Creatinine 0.7
Glucose 114 H
Calcium 9.4
Vital Signs:
Vital Signs
Temp Pulse Resp BP Pulse Ox
98.0 F 90 18 107/63 100
09/19/23 07:00 09/19/23 07:00 09/19/23 07:00 09/19/23 07:00 09/19/23 07:00
I&O
09/18/23 09/19/23 09/20/23
06:59 06:59 06:59
Intake Total 360 / 360 240 / 240
Output Total 500 / 500
Balance -140 / -140 240 / 240
Physical Exam
-
General: No Apparent Distress
HEENT: Normocephalic and Atraumatic
Respiratory: Negative Wheezes or Rales
Cardiac: Regular Rhythm and S1/S2
GI: Soft
Genito-urinary: No Costovertebral Tender
Musculoskeletal: No Edema
Neuro: AO x 3
Psych: Calm
Data Reviewed
-
Total Time Spent with Patient (in minutes): 41
Labs: Labs Reviewed by me
[2023-09-19] MEDS: IMODIUM 2 MG PO (17:22)
[2023-09-19] MEDS: TYLENOL 1000 MG PO ×2 (17:22→21:27)
[2023-09-19] MEDS: MIRAPEX, GENERIC 3 MG PO (21:27)
[2023-09-19 23:36] VITALS: BP 97/46
[2023-09-20] MEDS: ULTRAM 25 MG PO (04:41)
[2023-09-20 07:55] VITALS: BP 112/72; BP 121/67; BP 128/59; PULSE 100; PULSE 110; PULSE 66
[2023-09-20] MEDS: THERAGRAN 1 TABLET PO (08:04)
[2023-09-20] MEDS: VITAMIN B-12 1000 MCG PO (08:04)
[2023-09-20] MEDS: KEFLEX 500 MG PO ×2 (08:04→12:37)
[2023-09-20] MEDS: COREG 3.125 MG PO (08:04)
[2023-09-20] MEDS: TYLENOL 1000 MG PO ×3 (08:04→21:29)
[2023-09-20] MEDS: VITAMIN B-6 100 MG PO (08:04)
--- NOTE | 2023-09-20 11:59 | W.PN.HOSP.TC ---
Today's Communication/Plan
-
reduce Coreg to 3.125mg daily in AM (stop PM dose) - see if this helps dizziness
await placement
Assessment / Plan
Assessment / Plan
Assessment:
Acute on chronic ambulatory dysfunction/right knee contusion/abrasion
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
Status post spinal fusion L2-S2 on 08/12 (Dr Bains with [facility])
- CT head negative for CVA to explain weakness
- CT L/T spine without acute fractures, intact hardware
- R knee Xray with DJD, small effusion, no fracture
- suspect weakness/fall maybe related to UTI
- Prn Tramadol for pain
- ICE and Tylenol as well
- PT/OT - current with [facility] and recent rehab at [place]. SNF recommended and pt/family agreeable.
Dizziness, transient
- continue compression therapy
- decrease Tramadol to 25mg
- trial off PM Coreg dose and assess
UTI with incontinence
- completed Keflex course
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
Hx endometrial cancer status post hysterectomy 2017 with chemo, radiation, proton therapy
- Used to take gabapentin but no longer does
- Continue tramadol every 6 as needed per med list
Anemia-normocytic
- Hgb 9 baseline appears 10. monitor Hb
- Continue B12 supplement daily
Essential HTN
- continue BB Coreg
RLS - continue Pramipexole HS
Insomnia
- continue melatonin 5 mg at bedtime as needed
DVT prophylaxis: SCDs
Code: Full
Dispo: Medically stable for SNF placement. CM aware.
Anticipated Discharge: Within 24 hours
Subjective/Interval History
-
Date of Service: September 20, 2023
reports some mild dizziness at times
noted low BP after PM Coreg dose
Objective Data
-
Vital Signs:
Vital Signs
Temp Pulse Resp BP Pulse Ox
98.2 F 66 16 128/59 98
09/20/23 07:55 09/20/23 08:04 09/20/23 07:55 09/20/23 08:04 09/20/23 07:55
I&O
09/19/23 09/20/23 09/21/23
06:59 06:59 06:59
Intake Total 240 / 240 1919
Balance 240 / 240 1919
Physical Exam
-
General: No Apparent Distress
HEENT: Normocephalic and Atraumatic
Respiratory: Negative Wheezes
Cardiac: Regular Rhythm
GI: Soft
Genito-urinary: No Costovertebral Tender
Neuro: AO x 3
Psych: Calm
Data Reviewed
-
Total Time Spent with Patient (in minutes): 42
Labs: Labs Reviewed by me
[2023-09-20] MEDS: FEOSOL 325 MG PO (15:38)
[2023-09-20 15:42] VITALS: BP 114/51
[2023-09-20] MEDS: MIRAPEX, GENERIC 3 MG PO (21:31)
[2023-09-20 23:56] VITALS: BP 110/48
[2023-09-21 07:30] VITALS: BP 117/56
[2023-09-21] MEDS: TYLENOL 1000 MG PO (08:37)
[2023-09-21] MEDS: VITAMIN B-12 1000 MCG PO (08:37)
[2023-09-21] MEDS: VITAMIN B-6 100 MG PO (08:37)
[2023-09-21] MEDS: COREG 3.125 MG PO (08:38)
[2023-09-21] MEDS: THERAGRAN 1 TABLET PO (08:38)
[2023-09-21] MEDS: FEOSOL 325 MG PO (08:38)
--- NOTE | 2023-09-21 10:27 | W.DCSUMMARY ---
Discharge Summary
Discharge Data
Date of Admission: 09/15/23
Date of Discharge: 09/21/23
-
Pending Results: No
Hospital Course
83 years old female presented after mechanical fall. Patient had history of restless leg syndrome, neuropathy and gait dysfunction. Imaging studies including head scan, scan of the thoracic and lumbar spine, radiography of the right foot and the
left knee did not show acute changes but findings consistent with chronic changes and related to her previous lumbar surgery. No acute dislocation or fracture seen on the imaging studies. She did not have leukocytosis. She did not have fever.
Urine test was consistent with possible urinary tract infection, given empiric antibiotic. Urine culture did not show any growth. Patient remained hemodynamically stable. She was advised to take half the dose of tramadol to avoid further
dizziness/weakness. Patient reported restless leg syndrome. She was taking maximum dose of pramipexole. Patient was advised to seek neurologist evaluation in near future. She was started empirically on iron tablet, given prophylactic laxative.
Iron level and magnesium were normal. She was evaluated by physical therapy and recommended [facility] facility. Patient was discharged in a stable condition.
Physical Exam
-
General: No Apparent Distress
HEENT: Normocephalic and Atraumatic
Respiratory: Negative Wheezes or Rales
Cardiac: Regular Rhythm and S1/S2
GI: Soft and Nontender
Genito-urinary: No Costovertebral Tender
Musculoskeletal: No Edema
Neuro: AO x 3, followed commands.
Psych: Calm, no agitation.
Total discharge time spent to see the patient, examine the patient on the floor, review data and lab results, discuss treatment plan with patient, nursing staff and nurse case management around 65 minutes
Discharge Plan
-
Patient Disposition: Group Home/SNF
Discharge Diagnosis/Procedures: Gait dysfunction
Restless leg syndrome
Diet: As tolerated
Referrals:
Mini Diaz DO [Family Provider] - in two to three weeks
Daniel Rocha MD [Active] - in one to two weeks (For restless leg syndrome)
Prescriptions:
New
tramadol 50 mg Tablet
25 mg PO Q6HPRN PRN (Reason: moderate pain) Qty: 10 0RF
acetaminophen [Tylenol Extra Strength] 500 mg Tablet
1,000 mg PO TID Qty: 10 0RF
ferrous sulfate [FeroSul] 325 mg (65 mg iron) Tablet
325 mg PO DAILY Qty: 30 0RF
senna 8.6 mg capsule
8.6 mg PO HS Qty: 30 0RF
Continued
pramipexole 1.5 mg tablet
3 mg PO HS
cyanocobalamin (vitamin B-12) [Vitamin B-12] 1,000 mcg Tablet
1,000 mcg PO DAILY
pyridoxine (vitamin B6) [Vitamin B-6] 100 mg Tablet
100 mg PO DAILY
Ocuvite Tablet
1 tab PO DAILY
melatonin 5 mg Tablet
5 mg PO HS PRN (Reason: sleep)
Vitamin D3
1 tab PO SA
carvedilol 3.125 mg tablet
3.125 mg PO BID
cyanocobalamin (vitamin B-12) 1,000 mcg/mL solution
1,000 mcg IM MONTHLY
Centrum 0.4-162-18 mg Tablet
1 tab PO DAILY
Discontinued
tramadol 50 mg tablet
50 mg PO Q6H PRN (Reason: moderate pain)
Patient Comments:
09/15/2023: last filled 09/04/23, 20 tabs for 5 days from [facility]
Discharge Orders:
Discharge Patient (As Directed); Ordered 09/21/23
Ordered By: Jayesh Carpenter
--- NOTE | 2023-09-21 10:27 | CM ---
[facility] #[id number] from 09/21/23 to 09/23/23 .NRD 09/24/23 call No Kennedyan at [phone] and fax [phone].
Information given to [facility] bed available today.
Spoke with Hunter [phone] he agreed with dc to [facility] today. He requested ambulance transport.As per pt is confused.
Medical nec forms sent to floor.
[facility]
report [phone]
fax [phone]
PLAN To [facility] via ambulance
[2023-09-21 11:18] LABS: Iron 135 ug/dl (37-170)
[2023-09-21 11:30] VITALS: BP 123/67
[2023-09-21] MEDS: PREVNAR 20 0.5 ML IM (12:23)
== END 2023-09-21 15:02 ==
LOC: 4 WEST ACU 22:10
PROVIDERS: Internal Medicine; Physician Assistant; ADMITTING PHYSICIAN Hospitalist; ATTENDING PHYSICIAN Internal Medicine; EMERGENCY PHYSICIAN Student in an Organized Health Care Education/Training Program; FAMILY PHYSICIAN Family Medicine
DX: S80.01XA Contusion of right knee, initial encounter (principal); S80.211A Abrasion, right knee, initial encounter; R26.89 Other abnormalities of gait and mobility; M17.11 Unilateral primary osteoarthritis, right knee; N39.0 Urinary tract infection, site not specified; R32 Unspecified urinary incontinence; R42 Dizziness and giddiness; I10 Essential (primary) hypertension; G25.81 Restless legs syndrome; G89.29 Other chronic pain; M21.371 Foot drop, right foot; E53.8 Deficiency of other specified B group vitamins; G47.00 Insomnia, unspecified; G62.0 Drug-induced polyneuropathy; T45.1X5A Adverse effect of antineoplastic and immunosuppressive drugs, initial encounter; D64.9 Anemia, unspecified; M47.814 Spondylosis without myelopathy or radiculopathy, thoracic region; W10.8XXA Fall (on) (from) other stairs and steps, initial encounter; Z23 Encounter for immunization; Z79.899 Other long term (current) drug therapy; Z85.42 Personal history of malignant neoplasm of other parts of uterus; Z98.1 Arthrodesis status
CPT/HCPCS: 70450; 72100; 72128; 72131; 73564; 73630; 80048; 81003; 81015; 83540; 83735; 85025; 85027; 87086; 90677; 97116; 97162; 97166; 97535; 99285; G0009; G0378

== ENCOUNTER → 2024-02-03 09:00 | Outpatient (REF) | payer OTHER, SELFPAY | LOC: PAVMRI 09:00 | PROVIDERS: ATTENDING PHYSICIAN Internal Medicine | DX: R26.89 Other abnormalities of gait and mobility (principal); R51.9 Headache, unspecified | CPT/HCPCS: 70553; A9575 ==

== ENCOUNTER 2024-04-13 14:36 | Outpatient (RCR) | payer OTHER, SELFPAY | END 2024-04-13 23:59 | disposition home or self-care (01) | LOC: RPT 14:36 | PROVIDERS: ATTENDING PHYSICIAN Orthopaedic Surgery Orthopaedic Surgery of the Spine; FAMILY PHYSICIAN Internal Medicine | DX: M41.85 Other forms of scoliosis, thoracolumbar region (principal); R53.1 Weakness; Z73.6 Limitation of activities due to disability; R26.81 Unsteadiness on feet | CPT/HCPCS: 97110; 97163 ==

== ENCOUNTER 2024-05-19 08:01 | Outpatient (RCR) | payer OTHER, SELFPAY | END 2024-05-19 23:59 | disposition home or self-care (01) | LOC: RPT 08:01 | PROVIDERS: ATTENDING PHYSICIAN Orthopaedic Surgery Orthopaedic Surgery of the Spine; FAMILY PHYSICIAN Internal Medicine | DX: M41.85 Other forms of scoliosis, thoracolumbar region (principal); R53.1 Weakness; Z73.6 Limitation of activities due to disability; R26.2 Difficulty in walking, not elsewhere classified; R42 Dizziness and giddiness | CPT/HCPCS: 97110; 97112; 97530 ==

== ENCOUNTER → 2024-06-01 10:46 | Outpatient (REF) | payer OTHER, SELFPAY | LOC: PAVMRI 10:46 | PROVIDERS: ATTENDING PHYSICIAN Internal Medicine Hematology & Oncology | DX: R42 Dizziness and giddiness (principal); M54.12 Radiculopathy, cervical region | CPT/HCPCS: 70553; 72156; A9575 ==

== ENCOUNTER 2024-06-14 06:38 | Outpatient (RCR) | payer OTHER, SELFPAY | END 2024-06-14 23:59 | disposition home or self-care (01) | LOC: RPT 06:38 | PROVIDERS: ATTENDING PHYSICIAN Orthopaedic Surgery Orthopaedic Surgery of the Spine; FAMILY PHYSICIAN Internal Medicine | DX: M41.85 Other forms of scoliosis, thoracolumbar region (principal); R53.1 Weakness; Z73.6 Limitation of activities due to disability; R26.2 Difficulty in walking, not elsewhere classified; R26.89 Other abnormalities of gait and mobility | CPT/HCPCS: 97110; 97140; 97530 ==

== ENCOUNTER 2024-07-07 06:50 | Outpatient (RCR) | payer OTHER, SELFPAY | END 2024-07-07 23:59 | disposition home or self-care (01) | LOC: RPT 06:50 | PROVIDERS: ATTENDING PHYSICIAN Orthopaedic Surgery Orthopaedic Surgery of the Spine; FAMILY PHYSICIAN Internal Medicine | DX: M41.85 Other forms of scoliosis, thoracolumbar region (principal); R53.1 Weakness; Z73.6 Limitation of activities due to disability; R26.2 Difficulty in walking, not elsewhere classified; R26.89 Other abnormalities of gait and mobility | CPT/HCPCS: 97110; 97530 ==

== ENCOUNTER → 2024-07-15 06:54 | Outpatient (REF) | payer OTHER, SELFPAY | LOC: RAD 06:54 | PROVIDERS: ATTENDING PHYSICIAN Internal Medicine Cardiovascular Disease; FAMILY PHYSICIAN Internal Medicine | DX: R42 Dizziness and giddiness (principal); R60.9 Edema, unspecified | CPT/HCPCS: 93880; 93971 ==

== ENCOUNTER → 2024-08-16 17:03 | Outpatient (REF) | payer OTHER, SELFPAY | LOC: RAD 17:03 | PROVIDERS: FAMILY PHYSICIAN Internal Medicine | DX: R31.29 Other microscopic hematuria (principal) | CPT/HCPCS: 74178; Q9967 ==

== ENCOUNTER 2024-12-22 06:24 | Day surgery (SDC) | payer OTHER, SELFPAY | END 2024-12-22 12:52 | disposition home or self-care (01) | LOC: GI 06:24 | PROVIDERS: ATTENDING PHYSICIAN Specialist; FAMILY PHYSICIAN Internal Medicine | DX: K56.699 Other intestinal obstruction unspecified as to partial versus complete obstruction (principal); K63.89 Other specified diseases of intestine; R19.5 Other fecal abnormalities | CPT/HCPCS: 45380; 88305 ==

== ENCOUNTER → 2024-12-29 06:37 | Outpatient (REF) | payer OTHER, SELFPAY ==
[2024-12-29 07:32] LABS: % Basophils 0.2 % (0-2); % Eosinophils 3.2 % (0-6); % Immature Granulocytes 0.5 % (0-0.5); % Lymphocytes 21.1 % (20.5-51.1); % Monocytes 8.2 % (1.7-9.3); % Neutrophils 66.8 % (42.2-75.2); Absolute Eosinophils 0.1 10^3/uL (0-0.7); Absolute Lymphocytes 0.9 10^3/uL (1.2-3.4); Absolute Monocytes 0.4 10^3/uL (0.1-0.6); Absolute Neutrophils 2.9 10^3/uL (1.4-6.5); Hematocrit 37.3 % (37.0-47.0); Hemoglobin 11.8 g/dL (12.0-16.0); Mean Corp Hgb Conc. 31.6 g/dL (33.0-37.0); Mean Corpuscular Hgb 27.8 pg (27.0-31.0); Mean Platelet Volume 9.9 fL (7.4-10.4); Nucleated Red Blood Cells % 0 %; Platelet Count 203 10^3/uL (130-400); Red Blood Cell Count 4.24 10^6/uL (4.20-5.40); Red Cell Dist. Width 15.1 % (11.5-14.5); White Blood Cell Count 4.4 10^3/uL (4.8-10.8)
[2024-12-29 08:04] LABS: ALT (SGPT) 14 U/L (0-35); AST (SGOT) 17 U/L (14-36); Albumin 3.9 g/dl (3.5-5.0); Alkaline Phosphatase 69 U/L (38-126); Amylase 46 U/L (30-110); Blood Urea Nitrogen 21 mg/dl (7-17); Calcium 9.3 mg/dl (8.4-10.2); Carbon Dioxide 28 mmol/L (22-30); Chloride 109 mmol/L (98-107); Glucose 98 mg/dl (70-99); HDL Cholesterol 69 mg/dl; LDL Cholesterol, Calculated 77 mg/dl; Lipase 37 U/L (23-300); Potassium 4.5 mmol/L (3.5-5.1); Sodium 142 mmol/L (135-145); Total Bilirubin 0.3 mg/dl (0.2-1.3); Total Cholesterol 170 mg/dl (50-199); Total Protein 6.7 g/dl (6.3-8.2); Triglyceride 121 mg/dl (10-149); Very Low Density Lipoprotein 24 mg/dl (0-30); eGFR > 60.00
[2024-12-29 11:09] LABS: Vitamin B12 337 pg/ml (239-931)
== END ==
LOC: REG 06:37
PROVIDERS: ATTENDING PHYSICIAN Internal Medicine
DX: E53.8 Deficiency of other specified B group vitamins (principal); R10.13 Epigastric pain; E55.9 Vitamin D deficiency, unspecified; Z00.00 Encounter for general adult medical examination without abnormal findings
CPT/HCPCS: 36415; 80053; 80061; 82150; 82306; 82607; 83690; 85025

== ENCOUNTER → 2025-01-19 07:16 | Outpatient (REF) | payer OTHER, SELFPAY | LOC: RAD 07:16 | PROVIDERS: ATTENDING PHYSICIAN Internal Medicine | DX: R10.13 Epigastric pain (principal) | CPT/HCPCS: 72040; 76700 ==

== ENCOUNTER → 2025-03-02 14:10 | Outpatient (REF) | payer OTHER, SELFPAY | LOC: RAD 14:10 | PROVIDERS: ATTENDING PHYSICIAN Family Medicine | DX: R51.9 Headache, unspecified (principal) | CPT/HCPCS: 70450 ==

== ENCOUNTER 2025-03-26 12:22 | Emergency (ER) | payer OTHER, SELFPAY ==
[2025-03-26] VITALS (7 sets, daily range): BP systolic 133–149; BP diastolic 64–89; PULSE 74–84
[2025-03-26] MEDS: NSS 1000 IV ×2 (13:22→15:50)
[2025-03-26 13:24] LABS: Hematocrit 28.4 % (37.0-47.0); Hemoglobin 9.3 g/dL (12.0-16.0); Mean Corp Hgb Conc. 32.7 g/dL (33.0-37.0); Mean Corpuscular Volume 90.4 fL (81.0-99.0); Nucleated Red Blood Cells % 0 %; Platelet Count 194 10^3/uL (130-400); Red Cell Dist. Width 13.7 % (11.5-14.5)
--- NOTE | 2025-03-26 13:26 | ED.GENMED ---
History of Present Illness
General
Chief Complaint: Dizziness
Source: patient and family
Exam Limitations: none
Time Seen by Provider: 03/26/25 12:45
Nursing documentation reviewed up to this point in time: agreed with
History of Present Illness
History of Present Illness:
84-year-old female with past medical history as noted presents to the emergency room for evaluation of lightheadedness in the setting of recent GI symptoms. Patient reports that over the past week she has GI symptoms�she said she had 1 episode of
vomiting at the onset of the symptoms that has not since recurred but has been having loose nonbloody diarrhea over the past few days since. She says that yesterday she started to notice she was feeling lightheaded when she was walking down the
stairs and today again feeling lightheaded and faint which prompted her to come to the ER for assessment. She has not had any chest pain or palpitations, shortness of breath. Denies any headache. She reports some very mild lower abdominal
discomfort occasionally but no significant pains. She is chronically incontinent of urine but has noticed some dark urine and she thought she saw perhaps some mild hematuria. She has not noticed any fever or chills. Her only other complaint is
that she feels very weak in her legs over the past few days.
Past History
Past History
ED Past Medical History: Cancer (endometrial), HTN and Other (chronic back pain, restless leg)
ED Past Surgical History: Appendectomy, Gynecological and Other (cataracts)
Social History
Tobacco: Non-smoker
Alcohol: None
Drug: None
Personal:
Living: with family
Review of Systems
Review of Systems
All Other Systems: ROS reviewed and negative except as documented in HPI and ROS
Constitutional: Reports fatigue; Denies fever or chills
EENT: Denies sore throat or runny nose
Respiratory: Denies cough or trouble breathing
Cardiac: Denies chest pain
ABD/GI: Reports vomiting (1 episode) and diarrhea; Denies abdominal pain, nausea or bloody stools
: Reports incontinence (Chronic) and dark urine; Denies dysuria or flank pain
Musculoskeletal: Denies neck pain or back pain
Neurological: Reports weakness (Generalized weakness most notable in the legs); Denies headache
Phy Exam
Physical Exam
Physical Exam:
General: Awake, alert, oriented x3; no acute distress
Head: Normocephalic, atraumatic
Eyes: Conjunctiva normal, EOMI, pupils equal round and reactive to light bilaterally
Throat: Airway intact, somewhat dry mucous membranes
Neck: Trachea midline, supple without meningismus
Lungs: Clear to auscultation bilaterally, no wheezing, rales, rhonchi
Heart: Regular rate and rhythm, no murmurs, gallops, or rubs
Abd: Soft, non distended, nontender to deep palpation with no palpable masses
Neuro: Cranial nerves grossly intact, speech fluid; foot drop right leg which is chronic, motor and sensory otherwise intact and symmetric in all extremities
Extremities: No edema in extremities, equal pulses in all extremities
Course
Orders/Labs/Results
Orders:
Orders
03/26/25 12:46
Electrocardiogram (*1) Urgent
Reason for Study: Vertigo / Dizzy
EKG- Treatment ONCE
03/26/25 12:55
Complete Blood Count/With Diff Urgent
Comprehensive Metabolic Panel Urgent
03/26/25 13:13
Straight cath- Treatment ONCE
Stool Culture Urgent
SEAN Source: Feces/Stool
Specimen Description:
03/26/25 13:14
0.9% Sodium Chloride 1000 ml [Nss] 1,000 ml IV BOLUS
03/26/25 14:29
Urinalysis Reflex To Culture Urgent
Date Specimen was Collected: 03/26/25
Time Specimen was Collected: 14:27
Urine Microscopic Reflex Cult Urgent
03/26/25 15:12
Orthostatic VS- Treatment ONCE
03/26/25 15:46
0.9% Sodium Chloride 1000 ml [Nss] 1,000 ml IV BOLUS
03/26/25 17:04
Naproxen [Naprosyn] 500 mg PO NOW STA
Abnormal Lab Results
03/26/25 03/26/25
12:55 14:29
WBC 4.6 L 10^3/uL
(4.8-10.8)
RBC 3.14 L 10^6/uL
(4.20-5.40)
Hgb 9.3 L g/dL
(12.0-16.0)
Hct 28.4 L %
(37.0-47.0)
MCHC 32.7 L g/dL
(33.0-37.0)
Absolute Lymphs (auto) 0.9 L 10^3/uL
(1.2-3.4)
Lymphocytes % 18.3 L %
(20.5-51.1)
Monocytes % 9.7 H %
(1.7-9.3)
Total Protein 5.7 L g/dl
(6.3-8.2)
Albumin 3.4 L g/dl
(3.5-5.0)
Ur Occult Blood Reflex 2+ A
(Negative)
Urine RBC 7-10 A /HPF
(0-2)
Urine Bacteria (Reflex) Few A
(Negative)
03/26/25 12:55
03/26/25 12:55
Vital Signs
Initial and Last Documented VS:
Initial Vital Signs
Temp Pulse Resp BP Pulse Ox
36.3 C 75 18 133/66 100
03/26/25 12:24 03/26/25 12:24 03/26/25 12:24 03/26/25 12:24 03/26/25 12:24
Last Documented Vital Signs
Temp Pulse Resp BP Pulse Ox
36.3 C 74 15 140/89 99
03/26/25 12:24 03/26/25 15:45 03/26/25 15:45 03/26/25 15:20 03/26/25 15:45
MDM/Problems Addressed
Differential Diagnosis Includes:
Vomiting/diarrhea: Colitis, enteritis, diverticulitis
Lightheadedness: Dehydration, UTI (in the setting of recent diarrhea), electrolyte abnormalities
MDM/Problems Addressed:
84-year-old female presents to the ER for evaluation of lightheadedness and generalized weakness in the setting of recent GI symptoms most notably diarrhea. Vital signs are normal here, physical exam as above. Will plan to place an IV check labs
including a CBC and a CMP. Send stool studies if able. Check an EKG. Provide some IV fluids. She says she has some minimal abdominal discomfort but is essentially nontender�suspect that this is likely enterocolitis will hold off on abdominal
imaging for the time being. Will reassess after the above.
Labs reviewed: CBC shows marginal leukopenia, stable anemia. CMP no clinically significant abnormalities�notably normal potassium. Urinalysis negative for infection�few bacteria but multiple squamous cells and no pyuria to suggest infection. EKG
shows sinus rhythm with no ectopy or any other acute concerning findings. Suspect likely some mild dehydration in the setting of diarrheal illness contributing to generalized weakness and lightheadedness. Continue with fluids and reassess.
Patient feeling a bit better after fluids still having some mild lightheadedness. Had a long discussion with the patient, offered admission for continued monitoring versus discharge with continued oral fluids and rest at home over the next few days
with close PCP follow-up. Patient prefers to go home. She is finishing up a second liter of fluid and will plan for discharge after shared decision making process. She is having some mild right sided neck pain which is a chronic issue and she
takes naproxen at home�will provide this now.
*Pulse Oximetry
SaO2: 100
Oxygen Mode of Delivery: Room air
Patient hypoxic: no (100%)
*EKG
Interpreted by ED Provider?: Yes
Heart Rate: 71
Rate: normal
Rhythm: sinus
[place]: normal axis
Interval: normal interval
QRS Pattern: normal QRS
Ischemia: no ischemia
*Critical Care Note
Total Time (30-74mins, 75-104mins- exclusive of procedures): Not Applicable
Data Reviewed
Source: patient, records and family
ED Attending Note
-
Portions of this chart may have been created with voice recognition software.� Occasional wrong word or��sound alike� substitutions may have occurred due to the inherent limitations of voice recognition software.
Discharge Plan
Departure
Patient Disposition: Home (Routine Discharge)
Date of Disposition: 03/26/25
Time of Disposition: 17:18
Patient with high blood pressure during this ER visit?: No
Discharge Problem:
Lightheadedness, Dehydration, Diarrhea
Instructions: [place] diet, Dehydration in adults - ED (DC)
Prescriptions:
New
naproxen 500 mg tablet
500 mg PO BID PRN (Reason: Pain) Qty: 14 0RF
No Action
pramipexole 1.5 mg tablet
3 mg PO HS
cyanocobalamin (vitamin B-12) [Vitamin B-12] 1,000 mcg Tablet
1,000 mcg PO DAILY
pyridoxine (vitamin B6) [Vitamin B-6] 100 mg Tablet
100 mg PO DAILY
vitamin A-vitamin C-vit E-min Tablet
1 tab PO DAILY
melatonin 5 mg Tablet
5 mg PO HS PRN (Reason: sleep)
Vitamin D3
1 tab PO SA
carvedilol 3.125 mg tablet
3.125 mg PO BID
cyanocobalamin (vitamin B-12) 1,000 mcg/mL solution
1,000 mcg IM MONTHLY
lx-[id number]-WP-Yb-Pv-nkhsxou-lutein 0.4-162-18 mg Tablet
1 tab PO DAILY
tramadol 50 mg Tablet
25 mg PO Q6HPRN PRN (Reason: moderate pain) Qty: 10 0RF
acetaminophen [Tylenol Extra Strength] 500 mg Tablet
1,000 mg PO TID Qty: 10 0RF
ferrous sulfate [FeroSul] 325 mg (65 mg iron) Tablet
325 mg PO DAILY Qty: 30 0RF
senna 8.6 mg capsule
8.6 mg PO HS Qty: 30 0RF
Referrals:
Gaby Reyes MD [Family Provider, Internal Medicine] - Call in 1-3 days for appt
Activity Restrictions/Additional Instructions:
Thank you for visiting the Emergency Department at [facility].
1. Please schedule a follow up appointment as directed. Call first thing tomorrow morning to make an appointment.
2. If indicated, please take your medications as instructed and indicated on discharge paperwork.
3. If any of your symptoms do not improve, or persist, or become more severe within 6-12 hours, please return to the emergency department for further care.
4. Please return to the emergency department if you develop a headache, neck pain/stiffness, fever greater than 100.4F, chest pain, shortness of breath, persistent nausea, vomiting, slurred speech, difficulty walking, numbness/tingling, weakness,
signs of infection or any other symptoms that are worrisome to you.
Please call [phone] if you have any questions.
Interventions
Interventions:
*Risk Screen - Suicide Last Done: 03/26/25 12:24
*Neglect/Abuse Screening Last Done: 03/26/25 12:24
*ED COVID-19 Vaccine History Last Done: 03/26/25 17:06
ED- Neurological Assessment Last Done: 03/26/25 17:05
Discharge Date and Time
Print Language: TRINIDADIAN
[2025-03-26 13:52] LABS: ALT (SGPT) 12 U/L (0-35); AST (SGOT) 16 U/L (14-36); Albumin 3.4 g/dl (3.5-5.0); Alkaline Phosphatase 56 U/L (38-126); Blood Urea Nitrogen 15 mg/dl (7-17); Calcium 8.8 mg/dl (8.4-10.2); Carbon Dioxide 27 mmol/L (22-30); Chloride 106 mmol/L (98-107); Glucose 94 mg/dl (70-99); Potassium 4.3 mmol/L (3.5-5.1); Sodium 137 mmol/L (135-145); Total Protein 5.7 g/dl (6.3-8.2); eGFR > 60.00
[2025-03-26 14:42] LABS: Urine Character Clear (Clear)
[2025-03-26 15:31] LABS: Urine Squamous Cell 0-2 /LPF (Few)
[2025-03-26 15:32] LABS: Urine White Cell 0-2 /HPF (0-5)
[2025-03-26] MEDS: NAPROSYN 500 MG PO (17:16)
== END 2025-03-26 17:55 | disposition home or self-care (01) ==
LOC: EMR 12:22
PROVIDERS: EMERGENCY PHYSICIAN Emergency Medicine; FAMILY PHYSICIAN Internal Medicine
DX: R42 Dizziness and giddiness (principal); E86.0 Dehydration; R19.7 Diarrhea, unspecified; I10 Essential (primary) hypertension; G25.81 Restless legs syndrome; R32 Unspecified urinary incontinence; Z90.49 Acquired absence of other specified parts of digestive tract
CPT/HCPCS: 99283; 96360; 96361; 80053; 81003; 81015; 85025; 93005

== ENCOUNTER 2025-03-27 20:15 | Observation (INO) | payer OTHER, SELFPAY ==
[2025-03-27 14:47] VITALS: BP 112/70
--- NOTE | 2025-03-27 16:03 | ED.GENMED ---
History of Present Illness
General
Chief Complaint: Dizziness
Time Seen by Provider: 03/27/25 16:03
History of Present Illness
History of Present Illness:
FOCUSED PAST MEDICAL HISTORY
- The patient does have a history of memory loss, mitral regurgitation
REVIEW OF OLD RECORDS
- The patient was seen here yesterday diagnosed with dehydration. The chief complaint yesterday is listed as lightheadedness and this was associated with GI symptoms including diarrhea. Yesterday's notes include 'CBC shows marginal leukopenia,
stable anemia. CMP no clinically significant abnormalities�notably normal potassium. Urinalysis negative for infection�few bacteria but multiple squamous cells and no pyuria to suggest infection. EKG shows sinus rhythm with no ectopy or any other
acute concerning findings. Suspect likely some mild dehydration in the setting of diarrheal illness contributing to generalized weakness and lightheadedness. Continue with fluids and reassess.' The patient had a CAT scan of her head on 03/02/2025
which was unremarkable.
Note:
CHIEF COMPLAINT(S)
Dizziness upon standing or walking, weakness in right foot dorsiflexion, and concern about potential neurological issues.
HISTORY OF PRESENT ILLNESS
The patient is an 84-year-old female with a history of endometrial cancer, currently experiencing dizziness primarily when standing or walking. This has persisted for approximately one week, although not initially to the current severity. The
dizziness is not present when lying down but onset occurs upon sitting up or ambulating. The patient reports a significant fear of stroke and has noticed increasing weakness in the right foot, manifesting as difficulty dorsiflexing. Additionally,
she uses a walker at home and observes more pronounced weakness in the mornings, particularly when first getting out of bed. She denies having a pacemaker and recalls using exercises at home for strength maintenance. The patient lives with her
and expresses a desire to be hospitalized to address her symptoms, citing concerns about her brain function and seeking evaluation for potential inner ear issues.
PHYSICAL EXAM
- General: Well appearing in no distress
- HEENT: Moist oral mucosa
- Cardiovascular: No murmurs, normal heart rate, regular rhythm, No chest wall tenderness
- Pulmonary: No respiratory distress, breath sounds are clear and equal
- Abdomen: Soft with no peritoneal signs, no tenderness
- Neurologic: Excellent strength all extremities, no coordination deficits, there may be some mild memory impairment as she cannot recall having a CAT scan of her brain last month however she knows she is at [facility] and knows that it is
March, finger-nose testing is normal, she has some weakness into dorsiflexion at the right ankle which is chronic
- Psychiatric: Appropriate mental status, normal insight and judgement
- Extremities: Nontender, trace bilateral lower extremity edema, moves all extremities equally
- Skin: No rash, no lesions
EXTERNAL RECORDS REVIEWED
The patient had a previous visit where she received intravenous fluids and underwent blood work. Additionally, a CT scan of the brain performed about a month ago revealed no abnormalities.
CHRONIC MEDICAL CONDITIONS SIGNIFICANTLY AFFECTING CARE
Chronic conditions affecting care include a history of endometrial cancer.
PLAN
The plan includes repeating blood work to assess for any changes and potentially ordering a CT scan to further evaluate the patients condition.
DIFFERENTIAL DIAGNOSIS
The Differential Diagnosis includes, in no particular order and is not limited to:
- Orthostatic hypotension
- Dehydration
- Inner ear infection
- Vestibular dysfunction
- Stroke
- Transient ischemic attack
- Peripheral neuropathy
- Cervical spondylosis
- Anemia
- Hyponatremia
SUMMARY OF ENCOUNTER
The patient presented to the emergency department with dizziness upon standing or walking, coupled with weakness in the right foot dorsiflexion. Concerns about potential neurological issues, particularly stroke, were raised. Upon review, a previous
CT scan of the brain showed no abnormalities. The patient is taking iron supplements and vitamin B12. A decision was made to repeat blood tests to ensure there have been no change in her condition and consider another CT scan if needed.
DISPOSITION
The patient preferred admission for further evaluation due to the unresolved symptoms and fear of potential neurological etiologies.
ASSESSMENT
The patients symptoms suggest possible transient ischemic attack or other forms of vascular insufficiency, alongside considering vestibular dysfunction or inner ear pathology as differential diagnoses.
FOLLOW-UP INSTRUCTIONS
Based on clinical findings and pending test results, further recommendations will be provided on whether additional imaging or specialist evaluations are necessary.
MEDICAL DECISION MAKING
-Complexity of Data Reviewed: Chronic conditions affecting care include a history of endometrial cancer.
-Data:
Category 1:
Discussion of repeated blood work to check for any changes and potential order of a CT scan.
DIAGNOSIS
- CT head obtained which shows no acute abnormality
RADIOLOGY
- CT head shows no acute abnormality
EKG
- Sinus 72, normal axis, no acute ST abnormality, no change from yesterday
LABS
- Hemoglobin 9.6, leukopenia again seen
UPDATE
-SUMMARY OF ENCOUNTER
The patient presented to the emergency department with concerns about dizziness and weakness, particularly upon standing, without symptoms while lying down. The immediate assessment did not indicate any acute abnormalities. Initial management
included intravenous fluid administration to alleviate dizziness, which provided some relief. Given the persistence of symptoms and the patients expressed concerns about her condition, an admission for further evaluation was considered. A discussion
was held regarding potential further imaging, such as an MRI, to investigate any subtle neurological findings not visible in prior CT.
DISPOSITION
Admit.
ASSESSMENT
The symptoms raise concerns for orthostatic hypotension and potential neurological issues, possibly requiring further imaging to rule out transient ischemic attack or stroke.
PLAN
The plan includes discussing with the hospitalist regarding the patients admission for additional evaluation and testing, potentially including MRI if symptoms suggest further neurological investigation.
MEDICATION RECONCILIATION
Intravenous fluids were administered to help manage symptoms of dizziness.
MEDICAL DECISION MAKING
-Complexity of Data Reviewed: Chronic conditions affecting care include a history of endometrial cancer; the differential diagnosis includes orthostatic hypotension, dehydration, inner ear infection, vestibular dysfunction, stroke, transient
ischemic attack, peripheral neuropathy, cervical spondylosis, anemia, and hyponatremia.
-Data:
Category 1: Prior CT showed no abnormalities; blood work reviewed from previous encounter.
Category 2: Discussed potential further imaging, such as MRI, for comprehensive evaluation.
DIAGNOSIS
- Dizziness
Past History
Past History
ED Past Medical History: Cancer (endometrial), HTN and Other (chronic back pain, restless leg)
ED Past Surgical History: Appendectomy, Gynecological and Other (cataracts)
Social History
Tobacco: Non-smoker
Alcohol: None
Drug: None
Personal:
Living: with family
Phy Exam
Physical Exam
Physical Exam:
See HPI
Course
Orders/Labs/Results
Orders:
Orders
03/27/25 14:49
ECG [Electrocardiogram (*1)] Urgent
Reason for Study: Vertigo / Dizzy
03/27/25 14:50
EKG- Treatment ONCE
03/27/25 16:17
CT Head W/o Iv Contrast Urgent
Comment:
Reason For Exam: worsening dizziness
03/27/25 16:18
0.9% Sodium Chloride 500 ml [Nss] 500 ml IV BOLUS
03/27/25 16:44
Complete Blood Count/With Diff Urgent
Ferritin Urgent
Iron Urgent
Total Iron Binding Urgent
Abnormal Lab Results
03/27/25
16:44
WBC 4.5 L 10^3/uL
(4.8-10.8)
RBC 3.14 L 10^6/uL
(4.20-5.40)
Hgb 9.6 L g/dL
(12.0-16.0)
Hct 29.0 L %
(37.0-47.0)
Absolute Lymphs (auto) 0.7 L 10^3/uL
(1.2-3.4)
Lymphocytes % 16.4 L %
(20.5-51.1)
% Saturation 13 L %
(20-50)
03/27/25 16:44
Vital Signs
Initial and Last Documented VS:
Initial Vital Signs
Temp Pulse Resp BP Pulse Ox
36.7 C 72 20 112/70 99
03/27/25 14:47 03/27/25 14:47 03/27/25 14:47 03/27/25 14:47 03/27/25 14:47
Last Documented Vital Signs
Temp Pulse Resp BP Pulse Ox
36.7 C 70 17 144/65 99
03/27/25 14:47 03/27/25 16:08 03/27/25 16:08 03/27/25 16:08 03/27/25 16:05
*Pulse Oximetry
SaO2: 99
Oxygen Mode of Delivery: Room air
Patient hypoxic: no
*Critical Care Note
Total Time (30-74mins, 75-104mins- exclusive of procedures): Not Applicable
ED Attending Note
-
Portions of this chart may have been created with voice recognition software.� Occasional wrong word or��sound alike� substitutions may have occurred due to the inherent limitations of voice recognition software.
Discharge Plan
Departure
Prescriptions:
No Action
pramipexole 1.5 mg tablet
3 mg PO HS
cyanocobalamin (vitamin B-12) [Vitamin B-12] 1,000 mcg Tablet
1,000 mcg PO DAILY
pyridoxine (vitamin B6) [Vitamin B-6] 100 mg Tablet
100 mg PO DAILY
vitamin A-vitamin C-vit E-min Tablet
1 tab PO DAILY
melatonin 5 mg Tablet
5 mg PO HS PRN (Reason: sleep)
Vitamin D3
1 tab PO SA
carvedilol 3.125 mg tablet
3.125 mg PO BID
cyanocobalamin (vitamin B-12) 1,000 mcg/mL solution
1,000 mcg IM MONTHLY
qu-ilo-ZT-Ta-Ox-ngsnkze-lutein 0.4-162-18 mg Tablet
1 tab PO DAILY
tramadol 50 mg Tablet
25 mg PO Q6HPRN PRN (Reason: moderate pain) Qty: 10 0RF
acetaminophen [Tylenol Extra Strength] 500 mg Tablet
1,000 mg PO TID Qty: 10 0RF
ferrous sulfate [FeroSul] 325 mg (65 mg iron) Tablet
325 mg PO DAILY Qty: 30 0RF
senna 8.6 mg capsule
8.6 mg PO HS Qty: 30 0RF
naproxen 500 mg tablet
500 mg PO BID PRN (Reason: Pain) Qty: 14 0RF
Referrals:
Gaby Reyes MD [Family Provider, Internal Medicine]
Interventions
Interventions:
*Risk Screen - Suicide Last Done: 03/27/25 16:08
*General Assessment Last Done: 03/27/25 14:47
*Neglect/Abuse Screening Last Done: 03/27/25 16:08
ED- Neurological Assessment Last Done: 03/27/25 16:08
ED Swallowing Screen Last Done: 03/27/25 16:08
Discharge Date and Time
Print Language: ESTONIAN
[2025-03-27 16:08] VITALS: BP 144/65
[2025-03-27] MEDS: NSS 500 IV (16:44)
[2025-03-27 16:51] LABS: Hematocrit 29.0 % (37.0-47.0); Hemoglobin 9.6 g/dL (12.0-16.0); Mean Corp Hgb Conc. 33.1 g/dL (33.0-37.0); Mean Corpuscular Volume 92.4 fL (81.0-99.0); Nucleated Red Blood Cells % 0 %; Platelet Count 209 10^3/uL (130-400); Red Cell Dist. Width 13.6 % (11.5-14.5)
[2025-03-27 17:00] VITALS: BP 150/71
[2025-03-27 17:08] LABS: Iron 47 ug/dl (37-170)
[2025-03-27 17:17] LABS: Total Iron Binding Capacity 337 ug/dl (265-497)
[2025-03-27 18:17] VITALS: BP 154/70
--- NOTE | 2025-03-27 18:56 | HPS.HSE ---
Addendum entered and electronically signed by Luis Angel Orellana MD 03/27/25 21:12:
This is an addendum to H&P written by Ghazala Paez on 03/27/2025. �Patient seen and examined independently with [employer].
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
incontinence, endometrial cancer status post hysterectomy status post chemotherapy/radiation and proton therapy, presenting with 1 week of dizziness when she gets up in the morning and resolves with lying down.
Vital signs normal in fact blood pressure elevated 150s systolic. �Orthostatic vital signs negative.
Labs shows stable leukopenia, stable anemia of 9.6.
Patient given 1 L IV fluids.
Patient with dizziness/ambulatory dysfunction unclear etiology possibly vertigo from left hearing loss/chronic rhinorrhea/eustachian tube dysfunction or vestibular neuritis. �Try as needed meclizine. �PT/OT.
Original Note:
Family Physician
-
Family Physician: Gaby Reyes MD
Chief Complaint
-
Dizziness x 1 week
History of Present Illness
84-year-old female complaining of dizziness with standing or walking that has persisted for approximately 1 week. She reports dizziness resolves when lying down and exacerbated in the mornings.. She reports she feels off balance when walking with
her walker she reports chronic rhinorrhea for years however does not use any nasal sprays she does not report any fullness sensation in her ears. She denies fever, chills, sore throat, headache, chest pain, palpitations, cough, shortness of breath,
abdominal pain, nausea, vomiting, diarrhea, urinary symptoms. She lives at home with her and states she does have a house uses a stair lift. She reports she is still using her walker.
The patient had admission in August of this year due to legs feeling like they were giving out she has been using a walker since January 2023 after a lumbar laminectomy surgery. She does have chronic dropfoot of the right leg prior to January 2023 of
unknown origin
She has past medical history hypertension, anemia, B12 deficiency, chronic back pain, restless leg syndrome, insomnia, chronic dropfoot right leg,Hx endometrial cancer status post hysterectomy 2017 with chemo, radiation, proton therapy, chronic
different pigmented eyes left I sclera pigmented with brown iris, right eye iris grayish-green
Medical History
Past Medical History
Past Medical History: Reports Other
Additional Past Medical History:
hypertension
anemia, B12 deficiency
chronic back pain
restless leg syndrome,
insomnia
chronic dropfoot right leg
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
Hx endometrial cancer status post hysterectomy 2017 with chemo, radiation, proton therapy
Past Surgical History: Reports Other
Additional Past Surgical History:
Status post spinal fusion L2-S2 on 08/12 Dr ac Snyder
Laminectomy lumbar January 2023
endometrial cancer status post hysterectomy 2016
Social History
Tobacco: Non-smoker
Alcohol: Occasional (Wine)
Drug: None
Personal:
Living: With Family ( [place])
Employment: Retired
Family History
Family History: Other (Father unknown, mother old age 96)
Allergies / Home Medications
Allergies reflects when Allergies were last updated in [employer].
Home Medications with original date entered in [employer]
Allergy/Medication List:
Allergies
Allergy/AdvReac Type Severity Reaction Status Date / Time
No Known Allergies Allergy Verified 03/27/25 14:47
Home Medications
pramipexole 1.5 mg tablet 3 mg PO HS Muscle spasms 07/17/22
cyanocobalamin (vitamin B-12) 1,000 mcg tablet (Vitamin B-12) 1,000 mcg PO DAILY Supplement 01/08/23
carvedilol 3.125 mg tablet 3.125 mg PO BID Heart Failure 09/15/23
ferrous sulfate 325 mg (65 mg iron) tablet (FeroSul) 325 mg PO QPM 03/27/25
magnesium oxide 200 mg PO HS 03/27/25
melatonin 3 mg tablet 3 mg PO HSPRN PRN sleep 03/27/25
therapeutic multivitamin 1 tab PO DAILY 03/27/25
vibegron 75 mg tablet (Gemtesa) 75 mg PO DAILY 03/27/25
vitamin A-vitamin C-vit E-min tablet 1 tab PO DAILY 03/27/25
Review of Systems
-
History Source: Patient
A 12 point ROS was completed and negative except as noted: Yes
Constitutional: Denies Fever, Fatigue or Chills
EENT: Reports Runny Nose (Chronic rhinorrhea) and Other (Chronic hearing loss left greater than right); Denies Sore Throat
Respiratory: Denies Cough or Trouble Breathing
Cardiac: Denies Chest Pain, Diaphoresis, Palpitations or Syncope
Abdomen/GI: Denies Abdominal Pain, Nausea, Vomiting, Diarrhea, Constipated or Bloody Stools
: Reports Incontinence (Chronic urinary); Denies Dysuria, Frequency, Flank Pain, Difficulty Voiding, Urgency or Bleeding
Musculoskeletal: Denies Joint Pain or Edema
Skin: Denies Itching or Rash
Neurological: Reports Dizzy; Denies Headache or Weakness
Endocrine: Reports No Symptoms
Hematologic/Lymphatic: Reports No Symptoms
Psych: Reports Calm
Physical Exam
Vital Signs
Vital Signs
Temp Pulse Resp BP Pulse Ox
98.0 F 89 18 154/70 99
03/27/25 14:47 03/27/25 18:30 03/27/25 18:30 03/27/25 18:17 03/27/25 16:05
Physical Exam
General: Comfortable and Conversant; No Pain, Fever or Chills
HEENT: NormoCephalic, Anicteric, PERRLA (Left eye chronic pigmented sclera with brown eye, right eye iris grayish-green in color from ), [place] Conjunctivae, No Ptosis, Neck Nontender and Other (Right ear clear with visible landmarks, left ear
slight scarring in the upper right quadrant otherwise landmarks visible no fluid or effusion)
Respiratory: Clear; No Wheezes, Rales or Rhonchi
Cardiac: S1/S2 and Regular Rhythm; No Murmur, Rub, Gallop or Peripheral Edema
Breast: Deferred by me
GI: Soft, Non Tender, Non Distended, Normal Bowel Sounds and No Hepatosplenomegaly
Rectal: Deferred by Provider
Genito-urinary: Deferred by me
Musculoskeletal: No Clubbing, No Cyanosis and No Edema
Skin: Warm and Dry; No Rash
Neuro: AO x 3, No Motor Deficits (While in bed), Cranial Nerves Intact and Other (Chronic slight hearing impaired); No Slurred Speech, Facial Droop or Tremors
Psych: Calm
Laboratory Results
-
03/27/25 16:44
Impression/Plan
-
Impression/plan:
Observation MedSurg
#Acute on chronic ambulatory dysfunction secondary to dizziness vs vertigo
#Chronic dropfoot right leg unknown etiology prior to January 2023
#Status post spinal fusion L2-S2 on 08/12 Dr ac Snyder
-Patient had normal BMP yesterday 03/26/2025
-Check orthostatic vitals:Supine BP 149/79, HR 74
Sitting, BP 141/77, HR 80
Standing BP 140/89, HR 84
-Will give Antivert 25 mg now then every 8 hours as needed dizziness
-Consult PT/OT
CT head: No acute intracranial abnormalities. Findings again seen compatible with diffuse cortical atrophy and nonspecific white matter disease
September 15, 2023
CT lumbar spine without contrast:
Limited study due to beam artifact, extensive metal hardware from L2 to sacrum with placement of disc spacers at L3-L4, L4-L5, and L5-S1. L4 inferior endplate and L5 superior endplate irregularity similar to prior MRI
#HTN benign
BP 154/70
Continue carvedilol 3.125 mg p.o. twice daily
#Chronic rhinorrhea
Recommended OTC Nasonex
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
#Hx endometrial cancer status post hysterectomy 2016 with chemo, radiation, proton therapy
Used to take gabapentin but no longer does
-Continue tramadol every 6 as needed per med list
#Chronic neck pain
Patient reports was using naproxen, but ran out
Advise she can use Aleve but every other day and to take a PPI to protect the kidneys and stomach
#Anemia-normocytic
Hgb 9 0.6 appears baseline
-Continue B12 supplement daily
#Restless leg syndrome
-Continue pramipexole 3 mg at bedtime
#Insomnia
-Continue melatonin 5 mg at bedtime as needed
DVT prophylaxis
SCDs
full code
[2025-03-27] MEDS: ANTIVERT 25 MG PO (20:12)
[2025-03-27 21:40] VITALS: BP 168/79; BMI 23.1
[2025-03-27 21:46] LABS: Ferritin 16.1 ng/ml (11.1-264.0)
[2025-03-27] MEDS: HEPARIN 5000 UNITS SC (22:24)
[2025-03-27] MEDS: COREG 3.125 MG PO (22:24)
[2025-03-27] MEDS: MIRAPEX, GENERIC 0.5 MG PO (22:43)
[2025-03-27 23:00] VITALS: BP 133/64
[2025-03-28 07:00] VITALS: BP 140/64
[2025-03-28 08:36] LABS: Hematocrit 28.2 % (37.0-47.0); Hemoglobin 9.4 g/dL (12.0-16.0); Mean Corp Hgb Conc. 33.3 g/dL (33.0-37.0); Mean Corpuscular Volume 90.4 fL (81.0-99.0); Nucleated Red Blood Cells % 0 %; Platelet Count 204 10^3/uL (130-400); Red Cell Dist. Width 13.3 % (11.5-14.5)
[2025-03-28] MEDS: HEPARIN 5000 UNITS SC ×2 (09:07→20:51)
[2025-03-28] MEDS: COREG 3.125 MG PO ×2 (09:08→20:50)
[2025-03-28 09:45] VITALS: BP 128/58; BP 133/61; BP 141/68; PULSE 100; PULSE 83; PULSE 85
[2025-03-28 09:45] LABS: ALT (SGPT) 11 U/L (0-35); AST (SGOT) 15 U/L (14-36); Albumin 3.1 g/dl (3.5-5.0); Alkaline Phosphatase 53 U/L (38-126); Blood Urea Nitrogen 13 mg/dl (7-17); Calcium 8.7 mg/dl (8.4-10.2); Carbon Dioxide 27 mmol/L (22-30); Chloride 111 mmol/L (98-107); Estimated Creatinine Clearance 59 ml/min; Glucose 78 mg/dl (70-99); Potassium 4.0 mmol/L (3.5-5.1); Sodium 140 mmol/L (135-145); Total Protein 5.3 g/dl (6.3-8.2); eGFR > 60.00
[2025-03-28] MEDS: ANTIVERT 25 MG PO (11:39)
[2025-03-28] MEDS: TYLENOL 650 MG PO (11:39)
--- NOTE | 2025-03-28 12:36 | W.PN.HOSP.TC ---
Today's Communication/Plan
-
Monitor vital signs see plan
Continue monitor orthostatics
Carotid US
PT/OT evaluation
Assessment / Plan
Assessment / Plan
General: Comfortable and Conversant; No Pain, Fever or Chills
HEENT: NormoCephalic, Anicteric
Respiratory: Clear; No Wheezes, Rales or Rhonchi
Cardiac: S1/S2 and Regular Rhythm
GI: Soft, Non Tender, Non Distended, Normal Bowel Sounds
Musculoskeletal: No Edema
Neuro: AO x 3
Psych: Calm
Acute on chronic ambulatory dysfunction secondary to dizziness
Denies vertigo
#Chronic dropfoot right leg unknown etiology prior to January 2023
#Status post spinal fusion L2-S2 on 08/12 Dr ac Snyder
Monitor orthostatics
-Will give Antivert 25 mg now then every 8 hours as needed dizziness
PT/OT evaluation
Carotid Doppler, less than 50%.
lyme pending
CT head: No acute intracranial abnormalities. Findings again seen compatible with diffuse cortical atrophy and nonspecific white matter disease
September 15, 2023
CT lumbar spine without contrast:
Limited study due to beam artifact, extensive metal hardware from L2 to sacrum with placement of disc spacers at L3-L4, L4-L5, and L5-S1. L4 inferior endplate and L5 superior endplate irregularity similar to prior MRI
#HTN benign
Continue carvedilol 3.125 mg p.o. twice daily
#Chronic rhinorrhea
Recommended OTC Nasonex
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
#Hx endometrial cancer status post hysterectomy 2016 with chemo, radiation, proton therapy
Used to take gabapentin but no longer does
-Continue tramadol every 6 as needed per med list
#Chronic neck pain
Patient reports was using naproxen, but ran out
Advise she can use Aleve but every other day and to take a PPI to protect the kidneys and stomach
#Anemia-normocytic
Iron deficiency, start IV iron
-Continue B12 supplement daily
#Restless leg syndrome
-Continue pramipexole 3 mg at bedtime
#Insomnia
-Continue melatonin 5 mg at bedtime as needed
DVT prophylaxis
lovenox
full code
Anticipated Discharge: 24 - 48 hours
Subjective/Interval History
-
Date of Service: March 28, 2025
Has some dizziness
Objective Data
-
Labs:
Laboratory Results
03/28/25
07:47
WBC 3.5 L
Hgb 9.4 L
Hct 28.2 L
Plt Count 204
Sodium 140
Potassium 4.0
Chloride 111 H
Carbon Dioxide 27
BUN 13
Creatinine 0.7
Glucose 78
Calcium 8.7
Total Bilirubin 0.3
AST 15
ALT 11
Alkaline Phosphatase 53
Vital Signs:
Vital Signs
Temp Pulse Resp BP Pulse Ox
98.3 F 70 16 140/64 96
03/28/25 07:00 03/28/25 07:00 03/28/25 07:00 03/28/25 07:00 03/28/25 07:00
I&O
03/27/25 03/28/25 03/29/25
06:59 06:59 06:59
Intake Total 480 / 480
Balance 480 / 480
[2025-03-28 12:51] VITALS: BP 136/69; BP 143/69; PULSE 69; O2SAT 99
[2025-03-28 12:53] VITALS: BP 136/69; BP 143/61; PULSE 69; O2SAT 99
[2025-03-28] MEDS: FERRLECIT 110 MG IV (13:34)
[2025-03-28] MEDS: MIRAPEX, GENERIC 0.5 MG PO (14:00)
--- NOTE | 2025-03-28 14:40 | CM ---
Reviewed chart. Met with pt and for IA- completed. SHIELDS given and placed on the chart. Lives with her in a mult-story home with 3 steps with railings at the entrance. Has stairglide. Hx with HC- cannot remember agency used. Hx with
SNF- [facility], [facility] and acute rehab with [facility]. No insecurities identified. Confirmed PCP, Rx, insurance and drug coverage.
PT rec Home health. Patient said she is interested and would like to review the list of choices provided. Will rampart back with her tomorrow
Plan: TBD. Will follow for D/C needs
PCP- Gaby Schuler
[facility]- [facility] [place].
[2025-03-28 15:00] VITALS: BP 107/69
[2025-03-28] MEDS: MIRAPEX, GENERIC 3 MG PO (20:53)
[2025-03-28] MEDS: MELATONIN 3 MG PO (23:27)
[2025-03-28 23:29] VITALS: BP 122/55
[2025-03-29 07:00] VITALS: BP 125/61
[2025-03-29 07:26] LABS: Hematocrit 25.0 % (37.0-47.0); Hemoglobin 8.1 g/dL (12.0-16.0); Mean Corp Hgb Conc. 32.4 g/dL (33.0-37.0); Mean Corpuscular Volume 89.9 fL (81.0-99.0); Nucleated Red Blood Cells % 0 %; Platelet Count 182 10^3/uL (130-400); Red Cell Dist. Width 13.6 % (11.5-14.5)
[2025-03-29 07:52] LABS: Blood Urea Nitrogen 18 mg/dl (7-17); Calcium 9.1 mg/dl (8.4-10.2); Carbon Dioxide 27 mmol/L (22-30); Chloride 109 mmol/L (98-107); Estimated Creatinine Clearance 59 ml/min; Glucose 91 mg/dl (70-99); Potassium 4.4 mmol/L (3.5-5.1); Sodium 138 mmol/L (135-145); eGFR > 60.00
[2025-03-29] MEDS: COREG 3.125 MG PO ×2 (08:50→20:41)
[2025-03-29] MEDS: HEPARIN 5000 UNITS SC ×2 (08:51→20:44)
[2025-03-29] MEDS: ANTIVERT 25 MG PO (08:54)
--- NOTE | 2025-03-29 10:23 | CM ---
Addendum entered by Christina Machado 03/29/25 14:54:
Pt states she does not want to make a decision until closer to her discharge date.
Original Note:
Reviewed chart. Met with pt bedside. PT rec home health. CM provided choices- printed Medicare Compare facilities for [facility]N for [facility]. Will await pt's decision.
Plan: Home with
[2025-03-29 11:00] VITALS: BP 120/57; BP 123/56; BP 127/59; BP 86/62; PULSE 79; PULSE 80; PULSE 90; PULSE 91
--- NOTE | 2025-03-29 12:49 | W.PN.HOSP.TC ---
Today's Communication/Plan
-
Monitor vitals
See plan
Discussed with ophthalmology, patient to call for appointment to be seen soon outpatient
Check MRI brain
Teds
iron
Assessment / Plan
Assessment / Plan
General: Comfortable and Conversant; No Pain, Fever or Chills
HEENT: NormoCephalic, Anicteric
Respiratory: Clear; No Wheezes, Rales or Rhonchi
Cardiac: S1/S2 and Regular Rhythm
GI: Soft, Non Tender, Non Distended, Normal Bowel Sounds
Musculoskeletal: No Edema
Neuro: AO x 3
Psych: Calm
Acute on chronic ambulatory dysfunction secondary to dizziness
Denies vertigo
#Chronic dropfoot right leg unknown etiology prior to January 2023
#Status post spinal fusion L2-S2 on 08/12 Dr ac Snyder
Monitor orthostatics
-Will give Antivert 25 mg now then every 8 hours as needed dizziness
PT/OT evaluation
Carotid Doppler, less than 50%.
lyme pending
Spoke with ophthalmology Dr. Swenson and they will follow-up with patient soon outpatient.
check MRI brain
CT head: No acute intracranial abnormalities. Findings again seen compatible with diffuse cortical atrophy and nonspecific white matter disease
September 15, 2023
CT lumbar spine without contrast:
Limited study due to beam artifact, extensive metal hardware from L2 to sacrum with placement of disc spacers at L3-L4, L4-L5, and L5-S1. L4 inferior endplate and L5 superior endplate irregularity similar to prior MRI
#HTN benign
Continue carvedilol 3.125 mg p.o. twice daily
#Chronic rhinorrhea
Recommended OTC Nasonex
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
#Hx endometrial cancer status post hysterectomy 2017 with chemo, radiation, proton therapy
Used to take gabapentin but no longer does
-Continue tramadol every 6 as needed per med list
#Chronic neck pain
Patient reports was using naproxen, but ran out
Advise she can use Aleve but every other day and to take a PPI to protect the kidneys and stomach
#Anemia-normocytic
Iron deficiency, started IV iron
-Continue B12 supplement daily
#Restless leg syndrome
-Continue pramipexole 3 mg at bedtime
#Insomnia
-Continue melatonin 5 mg at bedtime as needed
DVT prophylaxis
lovenox
full code
Anticipated Discharge: Within 24 hours
Subjective/Interval History
-
Date of Service: March 29, 2025
still dizzy
Objective Data
-
Labs:
Laboratory Results
03/29/25
07:04
WBC 3.4 L
Hgb 8.1 L
Hct 25.0 L
Plt Count 182
Sodium 138
Potassium 4.4
Chloride 109 H
Carbon Dioxide 27
BUN 18 H
Creatinine 0.7
Glucose 91
Calcium 9.1
Vital Signs:
Vital Signs
Temp Pulse Resp BP Pulse Ox
97.6 F 75 16 125/61 97
03/29/25 07:00 03/29/25 07:00 03/29/25 07:00 03/29/25 07:00 03/29/25 07:00
I&O
03/28/25 03/29/25 03/30/25
06:59 06:59 06:59
Intake Total 480 / 480
Balance 480 / 480
[2025-03-29] MEDS: FERRLECIT 110 MG IV (13:29)
[2025-03-29 15:00] VITALS: BP 127/65; BP 151/61; BP 90/58; PULSE 100; PULSE 82; PULSE 84
[2025-03-29] MEDS: NSS 500 IV (15:59)
[2025-03-29] MEDS: MIRAPEX, GENERIC 3 MG PO (20:44)
[2025-03-29 23:32] VITALS: BP 111/52
[2025-03-30 03:52] VITALS: BP 134/65; BP 135/57; BP 155/68; PULSE 103; PULSE 84; PULSE 86
[2025-03-30 07:39] VITALS: BP 133/62
[2025-03-30 08:14] LABS: Hematocrit 24.1 % (37.0-47.0); Hemoglobin 7.9 g/dL (12.0-16.0); Mean Corp Hgb Conc. 32.8 g/dL (33.0-37.0); Mean Corpuscular Volume 92.0 fL (81.0-99.0); Nucleated Red Blood Cells % 0 %; Platelet Count 178 10^3/uL (130-400); Red Cell Dist. Width 13.6 % (11.5-14.5)
[2025-03-30] MEDS: HEPARIN 5000 UNITS SC ×2 (08:30→19:45)
[2025-03-30] MEDS: COREG 3.125 MG PO ×2 (08:32→19:45)
[2025-03-30 09:08] LABS: Blood Urea Nitrogen 18 mg/dl (7-17); Calcium 8.2 mg/dl (8.4-10.2); Carbon Dioxide 27 mmol/L (22-30); Chloride 109 mmol/L (98-107); Estimated Creatinine Clearance 52 ml/min; Glucose 83 mg/dl (70-99); Potassium 4.5 mmol/L (3.5-5.1); Sodium 138 mmol/L (135-145); eGFR > 60.00
[2025-03-30 09:34] LABS: COVID-19 Antigen Negative (Negative)
--- NOTE | 2025-03-30 12:51 | W.PN.HOSP.TC ---
Today's Communication/Plan
-
Monitor vital signs see plan
Start IV fluids,TEDS
Check TSH, cortisol in a.m.
Patient will follow-up with ophthalmology closely outpatient
If above workup is negative then start discharge planning
Assessment / Plan
Assessment / Plan
General: Comfortable and Conversant; No Pain, Fever or Chills
HEENT: NormoCephalic, Anicteric
Respiratory: Clear; No Wheezes, Rales or Rhonchi
Cardiac: S1/S2 and Regular Rhythm
GI: Soft, Non Tender, Non Distended, Normal Bowel Sounds
Musculoskeletal: No Edema
Neuro: AO x 3
Psych: Calm
Acute on chronic ambulatory dysfunction secondary to dizziness
Denies vertigo
#Chronic dropfoot right leg unknown etiology prior to January 2023
#Status post spinal fusion L2-S2 on 08/12 Dr ac Snyder
Monitor orthostatics, appears to be +9/10. Gentle hydration. TSH and random cortisol in a.m.
-Will give Antivert 25 mg now then every 8 hours as needed dizziness
PT/OT evaluation
Carotid Doppler, less than 50%.
lyme pending
Spoke with ophthalmology Dr. Swenson and they will follow-up with patient soon outpatient.
check MRI brain without acute CVA
CT head: No acute intracranial abnormalities. Findings again seen compatible with diffuse cortical atrophy and nonspecific white matter disease
September 15, 2023
CT lumbar spine without contrast:
Limited study due to beam artifact, extensive metal hardware from L2 to sacrum with placement of disc spacers at L3-L4, L4-L5, and L5-S1. L4 inferior endplate and L5 superior endplate irregularity similar to prior MRI
#HTN benign
Continue carvedilol 3.125 mg p.o. twice daily
#Chronic rhinorrhea
Recommended OTC Nasonex
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
#Hx endometrial cancer status post hysterectomy 2017 with chemo, radiation, proton therapy
Used to take gabapentin but no longer does
-Continue tramadol every 6 as needed per med list
#Chronic neck pain
Patient reports was using naproxen, but ran out
Advise she can use Aleve but every other day and to take a PPI to protect the kidneys and stomach
#Anemia-normocytic
Iron deficiency, started IV iron
-Continue B12 supplement daily
#Restless leg syndrome
-Continue pramipexole 3 mg at bedtime
#Insomnia
-Continue melatonin 5 mg at bedtime as needed
DVT prophylaxis
lovenox
full code
Anticipated Discharge: Within 24 hours
Subjective/Interval History
-
Date of Service: March 30, 2025
still has dizziness
Objective Data
-
Labs:
Laboratory Results
03/30/25
07:13
WBC 3.7 L
Hgb 7.9 L
Hct 24.1 L
Plt Count 178
Sodium 138
Potassium 4.5
Chloride 109 H
Carbon Dioxide 27
BUN 18 H
Creatinine 0.8
Glucose 83
Calcium 8.2 L
Vital Signs:
Vital Signs
Temp Pulse Resp BP Pulse Ox
98.1 F 67 16 133/62 98
03/30/25 07:39 03/30/25 08:32 03/30/25 07:39 03/30/25 08:32 03/30/25 08:45
I&O
03/29/25 03/30/25 03/31/25
06:59 06:59 06:59
Intake Total 600 / 600
Balance 600 / 600
[2025-03-30] MEDS: NSS 1000 IV (13:13)
--- NOTE | 2025-03-30 13:18 | CM ---
Spoke with patient at bedside .
PT indicated VN .
Offered VN She requested [facility] at [facility].
Her Hunter will drive her home at [facility].
PLAN Home with [facility] fax [phone]
[2025-03-30] MEDS: FERRLECIT 110 MG IV (14:41)
[2025-03-30 15:22] LABS: Lyme Antibody Screen, EIA Negative (Negative)
[2025-03-30 15:49] VITALS: BP 121/50
[2025-03-30 19:32] VITALS: BP 139/61; BP 146/67; BP 171/70; PULSE 104; PULSE 86
[2025-03-30] MEDS: MIRAPEX, GENERIC 3 MG PO (21:27)
[2025-03-30] MEDS: MELATONIN 3 MG PO (22:46)
[2025-03-30 23:17] VITALS: BP 136/66
[2025-03-31 07:00] VITALS: BP 146/65
[2025-03-31] MEDS: COREG 3.125 MG PO ×2 (07:31→20:38)
[2025-03-31] MEDS: HEPARIN 5000 UNITS SC ×2 (07:32→20:38)
[2025-03-31 08:53] LABS: Hematocrit 24.6 % (37.0-47.0); Hemoglobin 8.1 g/dL (12.0-16.0); Mean Corp Hgb Conc. 32.9 g/dL (33.0-37.0); Mean Corpuscular Volume 90.8 fL (81.0-99.0); Nucleated Red Blood Cells % 0 %; Platelet Count 173 10^3/uL (130-400); Red Cell Dist. Width 13.9 % (11.5-14.5)
[2025-03-31 09:18] LABS: Blood Urea Nitrogen 13 mg/dl (7-17); Calcium 8.5 mg/dl (8.4-10.2); Carbon Dioxide 25 mmol/L (22-30); Chloride 107 mmol/L (98-107); Estimated Creatinine Clearance 69 ml/min; Glucose 97 mg/dl (70-99); Potassium 4.2 mmol/L (3.5-5.1); Sodium 134 mmol/L (135-145); eGFR > 60.00
[2025-03-31 09:22] VITALS: BP 109/64; BP 134/65; BP 145/61; PULSE 88; O2SAT 99
[2025-03-31 09:48] LABS: Cortisol, Random 11.9 ug/dl
[2025-03-31] MEDS: ANTIVERT 25 MG PO ×2 (09:51→21:08)
[2025-03-31 11:27] VITALS: BP 109/73; BP 139/68
--- NOTE | 2025-03-31 11:27 | CON.NEURO4 ---
Addendum entered and electronically signed by Sanjay Garcia MD 03/31/25 12:53:
Studies reviewed.
I have personally examined the patient. I reviewed and agree with the ENVIRONMENTAL TECHNICAL OFFICER's Note.
My addenda:
Awake, mildly lethargic, interactive. No acute distress.
Speech intact.
Follows 2-step requests w/ mild difficulty. No tremor.
Extra-ocular movements grossly intact.
Facial movements full and symmetric. Hearing intact to normal conversational volume.
Normal UE movements bilaterally.
Neck: full ROM.
Chest: no dyspnea
Heart: no JVD
Ext: (-) Clubbing, (-) Cyanosis, (-) Edema
IMPRESSIONS/RECOMMENDATIONS:
Abrupt onset of dizziness, with evidence by neuroimaging testing that patient has experienced this in January 2024 at which time MRI of the brain was unrevealing for an etiology
Likely multifactorial including underlying dementia, orthostatic hypotension, metabolic deficiencies, fatigue. Orthostasis most likely due to underlying neuropathy secondary to chemotherapy
Would reduce pramipexole dosing due to risk of this medication producing worsening daily cognitive function from 3 mg at bedtime to 1.5 mg at bedtime
Follow orthostatic blood pressures with 3-minute increments between each body position change
Provide abdominal binder
Add thiamine for completeness
Continue rehabilitation evaluations and treatment
D/W patient
All questions answered.
Will continue to follow pending results.
Original Note:
Consultation - Neurology 4
-
CONSULTING PHYSICIAN: Sanjay Garcia MD
REFERRING PHYSICIAN: Hospitalists/Dr. Tafoya
DICTATED BY: CLIFTON Landis
DATE/TIME OF REQUEST: 03/31/25
DATE/TIME OF CONSULTATION: 03/31/25
Reason for Consultation: Dizziness
History of Present Illness:
This is an 84-year-old right-handed female who has presented to the hospital on 03/27/25 with report of dizziness. Patient reports about one week of vomiting and diarrhea accompanied by dizziness with standing and ambulation. She reports that when
she lies down her symptoms improve. Orthostatic vital signs were significantly positive. MRI brain and carotid ultrasound are unremarkable. She denies any headache, vision changes, tinnitus, ear fullness, and speech/swallow difficulty. She reports
feeling weak and wears hearing aids chronically. She notes that yesterday she was feeling improved, but now today she can't even sit up without feeling dizzy. Nursing staff note that patient has been more confused today and not as briskly
responsive.
Past Medical History: Endometrial cancer (s/p chemo, radiation, proton therapy, hysterectomy), HTN, restless legs syndrome, anemia, chronic back pain, polyneuropathy, right foot drop
Surgical History: L2-S2 spinal fusion, lumbar laminectomy, hysterectomy, appendectomy, b/l cataract removal
Family History: Reviewed and noncontributory.
Social History: Denies tobacco and illicit drug use. Occasional alcohol.
Allergies: No known allergies.
Home Medications: See below.
Review of Symptoms:
Patient denies any fever, headache, chest pain, shortness of breath, GI or symptoms.
�Per the HPI.�All systems are reviewed negative except above.
Physical Exam:
The patient is afebrile, abdomen is nondistended, breathing is unlabored, skin is warm and dry, no edema.
Neurologic Examination:
The patient is lethargic. Able to state month but not year/place. Conversation was more brisk/oriented sitting up. Reports feeling better lying more flat but becomes more confused when laid flat. She is able to follow some commands and answer some
questions appropriately. There is no aphasia or dysarthria. On cranial nerve assessment, pupils are 3 mm bilateral, round and reactive to light and accommodation. Corneal discoloration left eye. Fundal pallor left eye. No nystagmus. Visual johnson
are full. Extraocular movements are intact. Facial sensations are intact and bilaterally symmetrical, there is no facial asymmetry. Hearing is diminished bilaterally to normal conversation volume. Tongue palate and uvula are midline.
Sternocleidomastoid strengths are full bilaterally. Motor strengths are 5-/5 bilateral upper and lower extremities on medical research [place] scale. There is no drift or involuntary movement noted. Deep tendon reflexes are 2+ bilateral upper and
lower extremities and Babinski is absent bilaterally. There was no extinction noted on double simultaneous stimulation. Coordination is intact by finger to nose bilaterally.
Lab Results: See below.
Neuro Imaging:
1. MRI Brain 03/30/25: No evidence of acute intracranial abnormality. Mild to moderate atrophy which appears diffuse. Callosal angle appears normal, with no findings to suggest normal pressure hydrocephalus. Mild to moderate leukomalacia,
predominantly periventricular.
2. Carotid Ultrasound 03/28/25: Mild calcified bilateral carotid bulb plaque. Based on velocity parameters, any internal carotid artery stenosis is less than 50%. Antegrade flow bilateral vertebral arteries.
Differentials for the patient's presentation include:
1. Dizziness; etiology is likely autonomic dysfunction/orthostasis.
2. MRI brain and carotid ultrasound are negative for any structural abnormalities that could be contributing to symptoms.
3. Restless legs syndrome, severely low ferritin level.
Patient has the following risk factors for their symptoms: +Orthostatic vital signs, anemia, age
Recommendations:
-Would decrease home pramipexole from 3mg to 1.5mg as this can produce orthostasis.
-Continue IV iron replacement for low ferritin level, this should improve restless legs.
-Consider adjustment of cardiac medications.
-Abdominal binder daily when OOB.
-Check orthostatic vital signs BID.
-Increase fluid intake.
-Telemetry monitoring.
-PT/OT evaluations.
-Rechecking vitamin b12 level, was low in December. Continue cyanocobalamin 1000mcg PO daily.
-DVT prophylaxis.
Discussed patient care with: Dr. Garcia, the patient
Vital Signs and Labs
-
Vital Signs and Labs:
Vital Signs
Temp Pulse Resp BP Pulse Ox
99.2 F 92 16 146/65 96
03/31/25 07:00 03/31/25 07:31 03/31/25 07:00 03/31/25 07:31 03/31/25 07:00
Lab Results
03/31/25 08:11
03/31/25 08:11
Sodium 134 mmol/L (135-145) L 03/31/25 08:11
Potassium 4.2 mmol/L (3.5-5.1) 03/31/25 08:11
BUN 13 mg/dl (7-17) 03/31/25 08:11
Glucose 97 mg/dl (70-99) 03/31/25 08:11
Calcium 8.5 mg/dl (8.4-10.2) 03/31/25 08:11
Medications
-
Active Medications
Generic Name Dose Route Start Last Admin
Trade Name Freq PRN Reason Stop Dose Admin
Acetaminophen 650 mg 03/27/25 21:42 03/28/25 11:39
Acetaminophen 325 Mg Tablet PO 04/24/25 21:41 650 mg
Q4HPRN PRN Administration
mild pain/WANG/temp> 100.4F
Carvedilol 3.125 mg 03/27/25 23:00 03/31/25 07:31
Carvedilol 3.125 Mg Tablet PO 04/24/25 22:59 3.125 mg
BID CATHERINE Administration
Heparin Sodium 5,000 units 03/27/25 21:42 03/31/25 07:32
Heparin 5,000 Units/Ml 1 Ml Vial SC 04/24/25 21:41 5,000 units
Q12 CATHERINE Administration
Ferric Sodium Gluconate 110 mls @ 110 mls/hr 03/28/25 14:00 03/30/25 14:41
Complex 125 mg/ Sodium IV 04/01/25 14:59 110 mls
Chloride DAILY@1400 CATHERINE Administration
Meclizine HCl 25 mg 03/28/25 04:00 03/31/25 09:51
Meclizine 25 Mg Tablet PO 04/25/25 03:59 25 mg
Q8H PRN Administration
dizziness
Melatonin 3 mg 03/28/25 23:20 03/30/25 22:46
Melatonin 3 Mg Tablet PO 04/25/25 23:19 3 mg
HSPRN PRN Administration
Insomnia
Pramipexole Dihydrochloride 3 mg 03/28/25 13:35 03/30/25 21:27
Pramipexole 0.5 Mg Tablet PO 04/24/25 22:59 3 mg
HS CATHERINE Administration
Sodium Chloride 0 flush 03/27/25 22:00
Sodium Chloride 0.9% (Flush) Syringe IV 04/24/25 21:59
PER PROTOCOL CATHERINE
Home Medications
�Medication �Instructions �Recorded
pramipexole 1.5 mg tablet 3 mg PO HS Muscle spasms 07/17/22
cyanocobalamin (vitamin B-12) 1,000 mcg PO DAILY Supplement 01/08/23
1,000 mcg tablet (Vitamin B-12)
carvedilol 3.125 mg tablet 3.125 mg PO BID Heart Failure 09/15/23
ferrous sulfate 325 mg (65 mg 325 mg PO QPM 03/27/25
iron) tablet (FeroSul)
magnesium oxide 200 mg PO HS 03/27/25
melatonin 3 mg tablet 3 mg PO HSPRN PRN sleep 03/27/25
therapeutic multivitamin 1 tab PO DAILY 03/27/25
vibegron 75 mg tablet (Gemtesa) 75 mg PO DAILY 03/27/25
vitamin A-vitamin C-vit E-min 1 tab PO DAILY 03/27/25
tablet
[2025-03-31 11:50] LABS: Glucose - Point of Care 115 mg/dl (70-99)
--- NOTE | 2025-03-31 11:59 | CM ---
Addendum entered by Christina Machado 03/31/25 16:23:
Spoke with pt and she is having trouble finding her words today. Nurse aware. Pt states her dtr from [place] wants to be called with pt updates.
Pt also stated her has COVID.
Spoke with dtr Fabi ([facility]) about PT's rec for SNF. Informed her that there is a list of SNFs that have [employer] star-ratings in the pt's room. Will provide direction on how dtr can access information online-left at bedside. Dtr Has requested
#1 [facility], #2 [facility]. She will provide a 3rd choice tonight or tomorrow.
Addendum entered by Christina Machado 03/31/25 16:07:
Called spouse's contact again, this afternoon, no response. Called and left message with Dtr. Not sure if VM was recording. Will try again tomorrow. medicare 5-star compare report left at bedside with the pt.
Original Note:
Met with pt a bedside. Informed her that the PT rec has changed their rec to SNF. Pt states she understands and asked that CM call her to help them select SNFs for referral. LM on voicemail to call CM back. Phone number provided.
Plan: D/C to SNF of choice if agrees.
--- NOTE | 2025-03-31 13:14 | W.PN.HOSP.TC ---
Today's Communication/Plan
-
Seen monitor vitals
See plan
Neurology evaluation
Agree with decreasing pramipexole
tele
pt
Discussed with spouse
Monitor orthostatics
Assessment / Plan
Assessment / Plan
General: Comfortable and Conversant; No Pain, Fever or Chills
HEENT: NormoCephalic, Anicteric
Respiratory: Clear; No Wheezes, Rales or Rhonchi
Cardiac: S1/S2 and Regular Rhythm
GI: Soft, Non Tender, Non Distended, Normal Bowel Sounds
Musculoskeletal: No Edema
Neuro: AO x 3
Psych: Calm
Acute on chronic ambulatory dysfunction secondary to dizziness
Denies vertigo
#Chronic dropfoot right leg unknown etiology prior to January 2023
#Status post spinal fusion L2-S2 on 08/12 Dr ac Snyder
Monitor orthostatics, appears to be +/10. Gentle hydration. TSH and random cortisol in a.m.
-Will give Antivert 25 mg now then every 8 hours as needed dizziness
PT/OT following, now rec SNF
Carotid Doppler, less than 50%.
lyme neg
Spoke with ophthalmology Dr. Swenson and they will follow-up with patient soon outpatient.
check MRI brain without acute CVA
Check CT head today with complaint of questionable difficulty word finding. Me, PT and RN did not see any change.
Discussed with PT, was not orthostatic 03/31 however still had dizziness. PT might have noticed horizontal nystagmus. Neurology evaluation. If no acute findings then likely will start discharge planning with outpatient follow-up. I believe this
is likely multifactorial from possible cognitive impairment which is also playing a role along with history of chemotherapy with underlying neuropathy. Agree with lowering pramipexole
TSH, cortisol normal
CT head: No acute intracranial abnormalities. Findings again seen compatible with diffuse cortical atrophy and nonspecific white matter disease
September 15, 2023
CT lumbar spine without contrast:
Limited study due to beam artifact, extensive metal hardware from L2 to sacrum with placement of disc spacers at L3-L4, L4-L5, and L5-S1. L4 inferior endplate and L5 superior endplate irregularity similar to prior MRI
Hyponatremia
Monitor
#HTN benign
Continue carvedilol 3.125 mg p.o. twice daily
#Chronic rhinorrhea
Recommended OTC Nasonex
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
#Hx endometrial cancer status post hysterectomy 2016 with chemo, radiation, proton therapy
Used to take gabapentin but no longer does
-Continue tramadol every 6 as needed per med list
#Chronic neck pain
Patient reports was using naproxen, but ran out
Advise she can use Aleve but every other day and to take a PPI to protect the kidneys and stomach
#Anemia-normocytic
Iron deficiency, started IV iron, last dose 04/01
-Continue B12 supplement daily
#Restless leg syndrome
- Continue pramipexole, lower-dose
#Insomnia
-Continue melatonin 5 mg at bedtime as needed
DVT prophylaxis
lovenox
full code
I spent a total of 52 minutes with the patient or on the floor. More than 50% of this time involved counseling and coordination of care.
Anticipated Discharge: Within 24 hours
Subjective/Interval History
-
Date of Service: March 31, 2025
has dizziness
Objective Data
-
Labs:
Laboratory Results
03/31/25
08:11
WBC 5.0
Hgb 8.1 L
Hct 24.6 L
Plt Count 173
Sodium 134 L
Potassium 4.2
Chloride 107
Carbon Dioxide 25
BUN 13
Creatinine 0.6
Glucose 97
Calcium 8.5
Vital Signs:
Vital Signs
Temp Pulse Resp BP Pulse Ox
99.2 F 92 16 146/65 96
03/31/25 07:00 03/31/25 07:31 03/31/25 07:00 03/31/25 07:31 03/31/25 07:00
I&O
03/30/25 03/31/25 04/01/25
06:59 06:59 06:59
Intake Total 600 / 600 1390 / 1390
Output Total 600 / 600
Balance 600 / 600 790 / 790
[2025-03-31 13:35] LABS: Folate 11.9 ng/ml (2.76-20); Vitamin B12 520 pg/ml (239-931)
[2025-03-31] MEDS: FERRLECIT 110 MG IV (13:50)
[2025-03-31 15:00] VITALS: BP 132/60; BP 137/58; BP 139/59; PULSE 105; PULSE 115; PULSE 98
[2025-03-31 19:54] VITALS: BP 113/47; BP 117/48; BP 118/50; PULSE 107; PULSE 93; PULSE 97
[2025-03-31] MEDS: FEOSOL 325 MG PO (21:05)
[2025-03-31] MEDS: MIRAPEX, GENERIC 1.5 MG PO (21:06)
[2025-03-31 23:29] VITALS: BP 129/60
[2025-04-01 03:07] VITALS: BP 122/54
[2025-04-01 08:38] VITALS: BP 126/62; BP 126/82; BP 128/64; PULSE 86; PULSE 87
[2025-04-01] MEDS: TYLENOL 650 MG PO ×2 (08:38→21:00)
[2025-04-01] MEDS: HEPARIN 5000 UNITS SC ×2 (08:39→21:02)
[2025-04-01] MEDS: COREG 3.125 MG PO ×2 (08:41→21:01)
[2025-04-01 09:38] LABS: Hematocrit 25.3 % (37.0-47.0); Hemoglobin 8.1 g/dL (12.0-16.0); Mean Corp Hgb Conc. 32.0 g/dL (33.0-37.0); Mean Corpuscular Volume 92.0 fL (81.0-99.0); Nucleated Red Blood Cells % 0 %; Platelet Count 142 10^3/uL (130-400); Red Cell Dist. Width 14.1 % (11.5-14.5)
[2025-04-01 09:55] LABS: COVID-19 Antigen Positive (Negative)
[2025-04-01 09:57] LABS: Blood Urea Nitrogen 12 mg/dl (7-17); Calcium 8.4 mg/dl (8.4-10.2); Carbon Dioxide 26 mmol/L (22-30); Chloride 103 mmol/L (98-107); Estimated Creatinine Clearance 52 ml/min; Glucose 92 mg/dl (70-99); Potassium 4.0 mmol/L (3.5-5.1); Sodium 132 mmol/L (135-145); eGFR > 60.00
[2025-04-01 11:25] VITALS: BP 99/49
--- NOTE | 2025-04-01 12:36 | W.PN.HOSP.TC ---
Today's Communication/Plan
-
monitor vitals
see plan
follow fever curve
now covid +; no hypoxia
Discussed with spouse
Needs SNF
Assessment / Plan
Assessment / Plan
General: Comfortable and Conversant; No Pain, Fever or Chills
HEENT: NormoCephalic, Anicteric
Respiratory: Clear; No Wheezes, Rales or Rhonchi
Cardiac: S1/S2 and Regular Rhythm
GI: Soft, Non Tender, Non Distended, Normal Bowel Sounds
Musculoskeletal: No Edema
Neuro: AO x 3
Psych: Calm
Acute on chronic ambulatory dysfunction secondary to dizziness
Denies vertigo
#Chronic dropfoot right leg unknown etiology prior to January 2023
#Status post spinal fusion L2-S2 on 08/12 Dr ac Snyder
Monitor orthostatics, appears to be +03/29. Gentle hydration. TSH and random cortisol wnl
- Antivert 25 mg every 8 hours as needed dizziness
PT/OT following, now rec SNF
Carotid Doppler, less than 50%.
lyme neg
Spoke with ophthalmology Dr. Swenson and they will follow-up with patient soon outpatient.
check MRI brain without acute CVA
CT head repeat 03/31 without acute abnormality
Discussed with PT, was not orthostatic 03/31 however still had dizziness. PT might have noticed horizontal nystagmus. Neurology evaluation. If no acute findings then likely will start discharge planning with outpatient follow-up. I believe this
is likely multifactorial from possible cognitive impairment which is also playing a role along with history of chemotherapy with underlying neuropathy. Agree with lowering pramipexole
TSH, cortisol normal
CT head: No acute intracranial abnormalities. Findings again seen compatible with diffuse cortical atrophy and nonspecific white matter disease
September 15, 2023
CT lumbar spine without contrast:
Limited study due to beam artifact, extensive metal hardware from L2 to sacrum with placement of disc spacers at L3-L4, L4-L5, and L5-S1. L4 inferior endplate and L5 superior endplate irregularity similar to prior MRI
Fever 100.7 on 04/01
COVID now positive, had COVID few days ago. No need for further workup as believe this is the source
Denies any shortness of breath, not hypoxic. Per patient she is feeling better
no need for covid therapy at this mine;benefit outweigh the risk given very mild symptoms
Hyponatremia
Monitor
#HTN benign
Continue carvedilol 3.125 mg p.o. twice daily
#Chronic rhinorrhea
Recommended OTC Nasonex
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
#Hx endometrial cancer status post hysterectomy 2016 with chemo, radiation, proton therapy
Used to take gabapentin but no longer does
-Continue tramadol every 6 as needed per med list
#Chronic neck pain
Patient reports was using naproxen, but ran out
Advise she can use Aleve but every other day and to take a PPI to protect the kidneys and stomach
#Anemia-normocytic
Iron deficiency, started IV iron, last dose 04/01
-Continue B12 supplement daily
#Restless leg syndrome
- Continue pramipexole, lower-dose
#Insomnia
-Continue melatonin 5 mg at bedtime as needed
DVT prophylaxis
lovenox
full code
Anticipated Discharge: 24 - 48 hours
Subjective/Interval History
-
Date of Service: April 01, 2025
Fever this morning
Objective Data
-
Labs:
Laboratory Results
04/01/25
08:44
WBC 3.3 L
Hgb 8.1 L
Hct 25.3 L
Plt Count 142
Sodium 132 L
Potassium 4.0
Chloride 103
Carbon Dioxide 26
BUN 12
Creatinine 0.8
Glucose 92
Calcium 8.4
Vital Signs:
Vital Signs
Temp Pulse Resp BP Pulse Ox
98.6 F 64 16 99/49 97
04/01/25 11:25 04/01/25 11:25 04/01/25 11:25 04/01/25 11:25 04/01/25 11:25
I&O
03/31/25 04/01/25 04/02/25
06:59 06:59 06:59
Intake Total 1390 / 1390 660 / 660
Output Total 600 / 600
Balance 790 / 790 660 / 660
--- NOTE | 2025-04-01 14:10 | CM ---
Spoke with dtr Fabi. Dtr provided 2 more SNF selections: [facility]- referral made.
Pt is positive for COVID, SNFs made aware
Plan: d/c to SNF when stable.
[2025-04-01 15:35] VITALS: BP 111/59
[2025-04-01] MEDS: FERRLECIT 110 MG IV (15:59)
[2025-04-01 21:00] VITALS: BP 134/58
[2025-04-01] MEDS: MIRAPEX, GENERIC 1.5 MG PO (21:01)
[2025-04-01] MEDS: FEOSOL 325 MG PO (21:02)
[2025-04-01] MEDS: MELATONIN 3 MG PO (21:05)
[2025-04-01] MEDS: MOTRIN 200 MG PO (23:34)
[2025-04-01] MEDS: ANESTHETIC LOZENGE 1 LOZENGE PO (23:36)
[2025-04-01 23:42] VITALS: BP 133/53
[2025-04-02 03:33] VITALS: BP 104/48; BP 110/46; PULSE 74; PULSE 75
[2025-04-02] MEDS: ANESTHETIC LOZENGE 1 LOZENGE PO ×3 (05:50→22:20)
--- NOTE | 2025-04-02 08:05 | CM ---
Referrals sent to Estefanía Wayne at [facility].
Plan: D/c to SNF when stable
[2025-04-02] MEDS: COREG 3.125 MG PO (08:51)
[2025-04-02] MEDS: HEPARIN 5000 UNITS SC ×2 (08:51→20:40)
[2025-04-02 08:58] LABS: Hematocrit 23.4 % (37.0-47.0); Hemoglobin 7.8 g/dL (12.0-16.0); Mean Corp Hgb Conc. 33.3 g/dL (33.0-37.0); Mean Corpuscular Volume 92.5 fL (81.0-99.0); Nucleated Red Blood Cells % 0 %; Platelet Count 125 10^3/uL (130-400); Red Cell Dist. Width 13.9 % (11.5-14.5)
[2025-04-02 09:04] VITALS: BP 118/62; BP 126/59; BP 131/57; PULSE 74; PULSE 82; PULSE 90
[2025-04-02 09:22] LABS: Blood Urea Nitrogen 12 mg/dl (7-17); Calcium 7.8 mg/dl (8.4-10.2); Carbon Dioxide 23 mmol/L (22-30); Chloride 106 mmol/L (98-107); Estimated Creatinine Clearance 59 ml/min; Glucose 89 mg/dl (70-99); Potassium 3.4 mmol/L (3.5-5.1); Sodium 134 mmol/L (135-145); eGFR > 60.00
[2025-04-02] MEDS: KCL 20 MEQ PO (10:00)
[2025-04-02] MEDS: MUCINEX 1200 MG PO ×2 (11:29→20:42)
[2025-04-02 11:33] VITALS: BP 113/46
--- NOTE | 2025-04-02 13:01 | W.PN.HOSP.TC ---
Today's Communication/Plan
-
Monitor vital signs and see plan
Continue with COVID isolation
Follow fever curve
Check Pro-Mansoor
Check chest x-ray
Kris Armas
Assessment / Plan
Assessment / Plan
General: Comfortable and Conversant
HEENT: NormoCephalic, Anicteric
Respiratory: Clear; No Wheezes, Rales or Rhonchi
Cardiac: S1/S2 and Regular Rhythm
GI: Soft, Non Tender, Non Distended, Normal Bowel Sounds
Musculoskeletal: No Edema
Neuro: AO x 3
Psych: Calm
Acute on chronic ambulatory dysfunction secondary to dizziness
Denies vertigo
#Chronic dropfoot right leg unknown etiology prior to January 2023
#Status post spinal fusion L2-S2 on 08/12 Dr ac Snyder
Monitor orthostatics, appears to be +/10. Gentle hydration. TSH and random cortisol wnl
- Antivert 25 mg every 8 hours as needed dizziness
PT/OT following, now rec SNF
Carotid Doppler, less than 50%.
lyme neg
Spoke with ophthalmology Dr. Swenson and they will follow-up with patient soon outpatient.
check MRI brain without acute CVA
CT head repeat 03/31 without acute abnormality
Discussed with PT, was not orthostatic 03/31 however still had dizziness. PT might have noticed horizontal nystagmus. Neurology evaluation. If no acute findings then likely will start discharge planning with outpatient follow-up. I believe this
is likely multifactorial from possible cognitive impairment which is also playing a role along with history of chemotherapy with underlying neuropathy. Agree with lowering pramipexole. Dizziness appears to be improving after lowering pramipexole
TSH, cortisol normal
CT head: No acute intracranial abnormalities. Findings again seen compatible with diffuse cortical atrophy and nonspecific white matter disease
September 15, 2023
CT lumbar spine without contrast:
Limited study due to beam artifact, extensive metal hardware from L2 to sacrum with placement of disc spacers at L3-L4, L4-L5, and L5-S1. L4 inferior endplate and L5 superior endplate irregularity similar to prior MRI
Fever 100.7 on 04/01
COVID now positive, had COVID few days ago. No need for further workup as believe this is the source
Denies any shortness of breath, not hypoxic. Per patient she is feeling better
no need for covid therapy at this mine;benefit outweigh the risk given very mild symptoms. Discussed with patient and spouse, both agreeable.
check CXR; follow fever curve
check procal
mucinex,tessalon pearls
Hyponatremia
Monitor
Hypokalemia
Replete
#HTN benign
Continue carvedilol 3.125 mg p.o. twice daily
#Chronic rhinorrhea
Recommended OTC Nasonex
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
#Hx endometrial cancer status post hysterectomy 2016 with chemo, radiation, proton therapy
Used to take gabapentin but no longer does
-Continue tramadol every 6 as needed per med list
#Chronic neck pain
Patient reports was using naproxen, but ran out
Advise she can use Aleve but every other day and to take a PPI to protect the kidneys and stomach
#Anemia-normocytic
Iron deficiency, finished IV iron
-Continue B12 supplement daily
#Restless leg syndrome
- Continue pramipexole, lower-dose
#Insomnia
-Continue melatonin 5 mg at bedtime as needed
DVT prophylaxis
lovenox
full code
PT rec SNF
Anticipated Discharge: Within 24 hours
Subjective/Interval History
-
Date of Service: April 02, 2025
Fever overnight
Objective Data
-
Labs:
Laboratory Results
04/02/25
08:07
WBC 2.6 L
Hgb 7.8 L
Hct 23.4 L
Plt Count 125 L
Sodium 134 L
Potassium 3.4 L
Chloride 106
Carbon Dioxide 23
BUN 12
Creatinine 0.7
Glucose 89
Calcium 7.8 L
Vital Signs:
Vital Signs
Temp Pulse Resp BP Pulse Ox
98.8 F 78 16 113/46 95
04/02/25 11:33 04/02/25 11:33 04/02/25 11:33 04/02/25 11:33 04/02/25 11:33
I&O
04/01/25 04/02/25 04/03/25
06:59 06:59 06:59
Intake Total 660 / 660 480 / 480
Balance 660 / 660 480 / 480
[2025-04-02 14:20] LABS: Procalcitonin 0.06 ng/ml (0.0-0.25)
[2025-04-02 16:00] VITALS: BP 122/56
[2025-04-02] MEDS: TYLENOL 650 MG PO (18:02)
[2025-04-02 19:59] VITALS: BP 115/54; BP 129/55; BP 136/60; PULSE 106; PULSE 80; PULSE 88
[2025-04-02] MEDS: COREG PO (20:43)
[2025-04-02] MEDS: MIRAPEX, GENERIC 1.5 MG PO (21:00)
[2025-04-02] MEDS: FEOSOL 325 MG PO (21:00)
[2025-04-02] MEDS: MELATONIN 3 MG PO (22:20)
[2025-04-02 23:35] VITALS: BP 104/50
[2025-04-03] VITALS (7 sets, daily range): BP systolic 108–133; BP diastolic 50–69; PULSE 80–102; O2SAT 98
[2025-04-03 08:37] LABS: Hematocrit 26.4 % (37.0-47.0); Hemoglobin 8.7 g/dL (12.0-16.0); Mean Corp Hgb Conc. 33.0 g/dL (33.0-37.0); Mean Corpuscular Volume 91.3 fL (81.0-99.0); Nucleated Red Blood Cells % 0 %; Platelet Count 138 10^3/uL (130-400); Red Cell Dist. Width 13.9 % (11.5-14.5)
[2025-04-03 09:03] LABS: Blood Urea Nitrogen 12 mg/dl (7-17); Calcium 8.5 mg/dl (8.4-10.2); Carbon Dioxide 23 mmol/L (22-30); Chloride 106 mmol/L (98-107); Estimated Creatinine Clearance 59 ml/min; Glucose 98 mg/dl (70-99); Potassium 4.5 mmol/L (3.5-5.1); Sodium 134 mmol/L (135-145); eGFR > 60.00
[2025-04-03] MEDS: MUCINEX 1200 MG PO ×2 (09:25→20:18)
[2025-04-03] MEDS: COREG PO ×2 (09:25→20:18)
[2025-04-03] MEDS: HEPARIN 5000 UNITS SC ×2 (09:25→20:18)
--- NOTE | 2025-04-03 11:22 | CM ---
Addendum entered by Darlene Armas 04/03/25 16:08:
referral sent to [facility] at patient daughter request.
Addendum entered by Darlene Armas 04/03/25 15:10:
Patient daughter will review and will call CM back with further referrals. CM will continue to follow for discharge planning needs.
Addendum entered by Darlene Armas 04/03/25 13:56:
[facility] now unable to accept patient at this time. CM updated physician, patient daughter and called to [facility], pending review by tripp in admissions. CM called to [facility] and left for Jud at [phone]. CM also called to
G[facility] and per Gavin they do not have a private room for patient. CM called to admissions to clarify insurance and intake form is confusing, await call back. CM will continue to follow for discharge planning needs.
Plan; SNF
Addendum entered by Darlene Armas 04/03/25 13:15:
Marty is reviewing auth request at this time. Physician updated via tt that no authorization is approved at this time.
Original Note:
Patient for possible discharge per physician tt. CM reviewed options and tt sent to [facility] to confirm ability to accept. CM will call to evaluate other options. CM will continue to follow for discharge planning needs.
Plan; SNF
--- NOTE | 2025-04-03 13:07 | W.PN.HOSP.TC ---
Today's Communication/Plan
-
Plan for discharge to SNF when arranged. Patient is agreeable
Assessment / Plan
Assessment / Plan
Acute on chronic ambulatory dysfunction secondary to dizziness
Neurology consulted appreciate recommendation
TSH and random cortisol wnl, lyme neg
Carotid Doppler, less than 50%.
MRI brain without acute CVA
CT head repeat 03/31 without acute abnormality
Patient was not orthostatic
COVID-positive, see below, this is suspected to be the etiology of the dizziness
Antivert 25 mg every 8 hours as needed dizziness
Pramipexole dose lowered
PT/OT following, now rec SNF
Ophthalmology Dr. Swenson will follow-up with patient soon outpatient.
COVID positive
Fever 100.7 on 04/01
No need for covid therapy at this mine; benefit outweigh the risk given very mild symptoms.
CXR with basilar opacities
Low procal
Symptomatic treatment with mucinex, tessalon pearls, lozenges for sore throat
Hyponatremia
Mild, monitor
Hypokalemia -resolved
HTN, benign
Continue carvedilol 3.125 mg p.o. twice daily
Chronic rhinorrhea
Recommended OTC Nasonex
Chronic neuropathy
bilateral feet, secondary to chemotherapy
Hx endometrial cancer status post hysterectomy 2016 with chemo, radiation, proton therapy
Used to take gabapentin but no longer does
-Continue tramadol every 6 as needed per med list
Chronic neck pain
Patient reports was using naproxen, but ran out
Advise she can use Aleve but every other day and to take a PPI to protect the kidneys and stomach
Anemia-normocytic
Iron deficiency, s/p IV iron
-Continue B12 supplement daily
Restless leg syndrome
- Continue pramipexole, lower-dose
Insomnia
-Continue melatonin 5 mg at bedtime as needed
DVT prophylaxis
lovenox
full code
PT rec SNF
Anticipated Discharge: Within 24 hours
Subjective/Interval History
-
Date of Service: April 03, 2025
Patient still notes dizziness and sore throat
Objective Data
-
Labs:
Laboratory Results
04/03/25
08:20
WBC 3.7 L
Hgb 8.7 L
Hct 26.4 L
Plt Count 138
Sodium 134 L
Potassium 4.5 D
Chloride 106
Carbon Dioxide 23
BUN 12
Creatinine 0.7
Glucose 98
Calcium 8.5
Vital Signs:
Vital Signs
Temp Pulse Resp BP Pulse Ox
99.3 F 89 16 115/55 96
04/03/25 11:06 04/03/25 11:06 04/03/25 11:06 04/03/25 11:06 04/03/25 11:06
I&O
04/02/25 04/03/25 04/04/25
06:59 06:59 06:59
Intake Total 480 / 480 960 / 960
Balance 480 / 480 960 / 960
Review of Systems
-
All other systems: Reviewed and negative
Physical Exam
-
General: No Apparent Distress
HEENT: Moist Mucous Membranes, Anicteric and PERRLA
Respiratory: Clear to Auscultation; Negative Wheezes, Rales or Rhonchi
Cardiac: Regular Rhythm and S1/S2; Negative Murmur, Rub or Gallop
GI: Soft, Nontender, Nondistended and Normal Bowel Sounds
Musculoskeletal: No Edema
Skin: Warm and Dry; Negative Rash, Ulcers or Lesions
Neuro: Awake and AO x 3
Hematologic / Lymphatic: No Lymphadenopathy
Psych: Calm
Data Reviewed
-
Diagnostic Radiology: Report Reviewed by me and Discussed with Patient
Labs: Labs Reviewed by me and Discussed with Patient
--- NOTE | 2025-04-03 16:30 | PTCARENOTE ---
Assumed care of pt from previous nurse. Pt denies pain. pt call sheriff is within reach, pt rings juan luis., bed alarm in place. will cont to monitor.
[2025-04-03] MEDS: MIRAPEX, GENERIC 1.5 MG PO (21:35)
[2025-04-03] MEDS: ANESTHETIC LOZENGE 1 LOZENGE PO (21:39)
[2025-04-03] MEDS: FEOSOL 325 MG PO (21:39)
[2025-04-03] MEDS: MELATONIN 3 MG PO (21:42)
[2025-04-04] VITALS (9 sets, daily range): BP systolic 100–136; BP diastolic 47–59; PULSE 72–101
[2025-04-04 08:30] LABS: Hematocrit 24.6 % (37.0-47.0); Hemoglobin 8.1 g/dL (12.0-16.0); Mean Corp Hgb Conc. 32.9 g/dL (33.0-37.0); Mean Corpuscular Volume 91.8 fL (81.0-99.0); Platelet Count 137 10^3/uL (130-400); Red Cell Dist. Width 14.0 % (11.5-14.5)
--- NOTE | 2025-04-04 09:06 | CM ---
Addendum entered by Rina Brown 04/05/25 16:27:
[facility]
Report [phone]

Addendum entered by Rina Brown 04/04/25 14:26:
Per insurance they intend to deny, need physician to physician review, appeal [phone] option 2, pending ref [id number]
Addendum entered by Rina Brown 04/04/25 13:30:
Patient needs private room and patient has been difficult to place at a skilled facility due to requiring a private room. Patient has finally been accepted at [facility] pending Auth [id number], manager rn case reached out to Apolonia Venkata with
insurance and she states that patient has not been approved and clinicals were sent to medical attendant for review.
Original Note:
Chart reviewed and patient is COVID+ and admitted with ambulatory dysfunction under observation, [facility],, [facility] referrals sent to [facility] and [facility].
Plan; To follow up with admissions to [facility] and [facility].
[2025-04-04 09:30] LABS: Blood Urea Nitrogen 12 mg/dl (7-17); Calcium 7.8 mg/dl (8.4-10.2); Carbon Dioxide 24 mmol/L (22-30); Chloride 108 mmol/L (98-107); Estimated Creatinine Clearance 52 ml/min; Glucose 90 mg/dl (70-99); Potassium 3.9 mmol/L (3.5-5.1); Sodium 136 mmol/L (135-145); eGFR > 60.00
[2025-04-04] MEDS: MUCINEX 1200 MG PO ×2 (10:29→20:15)
[2025-04-04] MEDS: COREG PO ×2 (10:29→20:15)
[2025-04-04] MEDS: HEPARIN 5000 UNITS SC ×2 (10:30→20:15)
--- NOTE | 2025-04-04 14:21 | W.PN.HOSP.TC ---
Today's Communication/Plan
-
Plan for discharge to SNF when arranged. Patient is agreeable
Assessment / Plan
Assessment / Plan
Acute on chronic ambulatory dysfunction secondary to dizziness
Neurology consulted appreciate recommendation
TSH and random cortisol wnl, lyme neg
Carotid Doppler, less than 50%.
MRI brain without acute CVA
CT head repeat 03/31 without acute abnormality
Patient was not orthostatic
COVID-positive, see below, this is suspected to be the etiology of the dizziness
Antivert 25 mg every 8 hours as needed dizziness
Pramipexole dose lowered
PT/OT following, now rec SNF
Ophthalmology Dr. Swenson will follow-up with patient soon outpatient.
COVID positive
Fever 100.7 on 04/01
No need for covid therapy at this mine; benefit outweigh the risk given very mild symptoms.
CXR with basilar opacities
Low procal
Symptomatic treatment with mucinex, tessalon pearls, lozenges for sore throat
Hyponatremia - resolved
Hypokalemia -resolved
HTN, benign
Continue carvedilol 3.125 mg p.o. twice daily
BP controlled
Chronic rhinorrhea
Recommended OTC Nasonex
Chronic neuropathy
bilateral feet, secondary to chemotherapy
Hx endometrial cancer status post hysterectomy 2016 with chemo, radiation, proton therapy
Used to take gabapentin but no longer does
-Continue tramadol every 6 as needed per med list
Chronic neck pain
tylenol prn
Anemia-normocytic
Iron deficiency, s/p IV iron
-Continue B12 supplement daily
Restless leg syndrome
- Continue pramipexole, lower-dose
consider adding pregabalin
Insomnia
-Continue melatonin 5 mg at bedtime as needed
DVT prophylaxis
lovenox
full code
PT rec SNF
Anticipated Discharge: Within 24 hours
Subjective/Interval History
-
Date of Service: April 04, 2025
Patient states she is feeling much better today and not currently dizzy or having sore throat. She was seen while eating solid food
Objective Data
-
Labs:
Laboratory Results
04/04/25
07:21
WBC 2.9 L
Hgb 8.1 L
Hct 24.6 L
Plt Count 137
Sodium 136
Potassium 3.9
Chloride 108 H
Carbon Dioxide 24
BUN 12
Creatinine 0.8
Glucose 90
Calcium 7.8 L
Vital Signs:
Vital Signs
Temp Pulse Resp BP Pulse Ox
97.9 F 72 14 109/54 96
04/04/25 11:15 04/04/25 11:15 04/04/25 11:15 04/04/25 11:15 04/04/25 11:15
I&O
04/03/25 04/04/25 04/05/25
06:59 06:59 06:59
Intake Total 960 / 960 720 / 720
Balance 960 / 960 720 / 720
Review of Systems
-
All other systems: Reviewed and negative
Physical Exam
-
General: No Apparent Distress
HEENT: Moist Mucous Membranes, Anicteric and PERRLA
Respiratory: Clear to Auscultation; Negative Wheezes, Rales or Rhonchi
Cardiac: Regular Rhythm and S1/S2; Negative Murmur, Rub or Gallop
GI: Soft, Nontender, Nondistended and Normal Bowel Sounds
Musculoskeletal: No Edema
Skin: Warm and Dry; Negative Rash, Ulcers or Lesions
Neuro: Awake and AO x 3
Hematologic / Lymphatic: No Lymphadenopathy
Psych: Calm
Data Reviewed
-
Diagnostic Radiology: Report Reviewed by me and Discussed with Patient
Labs: Labs Reviewed by me and Discussed with Patient
[2025-04-04] MEDS: TYLENOL 650 MG PO (20:27)
[2025-04-04] MEDS: MELATONIN 3 MG PO (21:10)
[2025-04-04] MEDS: FEOSOL 325 MG PO (21:10)
[2025-04-04] MEDS: MIRAPEX, GENERIC 1.5 MG PO (21:10)
[2025-04-04] MEDS: ANESTHETIC LOZENGE 1 LOZENGE PO (21:12)
--- NOTE | 2025-04-05 02:20 | DOWNTIME ---
There was a [employer] Client [employer] Station Attendant Downtime on 04/05/2025 from 0100 to 04/05/2025 at 0215. Downtime documentation of patient's care, including medication administrations, has been reconciled in the electronic record per guidelines. Refer to the
patient's paper chart under the miscellaneous tab to see printed paper medication records and downtime forms.
[2025-04-05 03:49] VITALS: BP 143/68
[2025-04-05 07:40] VITALS: BP 143/68
[2025-04-05 08:06] LABS: Hematocrit 26.0 % (37.0-47.0); Hemoglobin 8.5 g/dL (12.0-16.0); Mean Corp Hgb Conc. 32.7 g/dL (33.0-37.0); Mean Corpuscular Volume 91.9 fL (81.0-99.0); Platelet Count 145 10^3/uL (130-400); Red Cell Dist. Width 13.6 % (11.5-14.5)
[2025-04-05 08:39] LABS: Blood Urea Nitrogen 11 mg/dl (7-17); Calcium 8.3 mg/dl (8.4-10.2); Carbon Dioxide 24 mmol/L (22-30); Chloride 109 mmol/L (98-107); Estimated Creatinine Clearance 59 ml/min; Glucose 94 mg/dl (70-99); Potassium 4.2 mmol/L (3.5-5.1); Sodium 137 mmol/L (135-145); eGFR > 60.00
--- NOTE | 2025-04-05 09:49 | CM ---
Addendum entered by Rina Brown 04/05/25 16:52:
[facility]
Report [phone]

Addendum entered by Rina Brown 04/05/25 16:03:
Patient has been approved for 6 days skilled at [facility] today, patient has a 7:30pm pharmacy picking technician to [facility], Auth 04/05-04/10 NRD 04/11, Auth [id number], daughter is aware of discharge.
Addendum entered by Rina Brown 04/05/25 15:44:
Per physician paint has been approved through insurance call placed to Apolonia at [facility] and waiting on confirmation of Auth.
Original Note:
All clinicals were submitted to insurance for authorization for skilled placement and physician at insurance company requesting a peer to peer review, waiting on physician to physician review for case, patient has been accepted at [facility]
jail facility.
Plan; Waiting on outcome of physician to physician appeal.
[2025-04-05] MEDS: COREG 3.125 MG PO ×2 (10:06→19:20)
[2025-04-05] MEDS: HEPARIN 5000 UNITS SC (10:07)
[2025-04-05] MEDS: MUCINEX 1200 MG PO ×2 (10:07→19:21)
[2025-04-05] MEDS: TYLENOL 650 MG PO (11:49)
[2025-04-05] MEDS: ANTIVERT 25 MG PO (11:49)
[2025-04-05 12:16] VITALS: BP 109/56; BP 140/66; PULSE 72; PULSE 84
[2025-04-05 13:43] VITALS: BP 124/63; BP 137/59; BP 147/66; PULSE 75; O2SAT 100
--- NOTE | 2025-04-05 15:08 | W.PN.UPDATE ---
Update Note
Progress Note Update
Spoke to Marty, pt tolerating PT much better now, so auth approved.
[2025-04-05 15:40] VITALS: BP 117/56
--- NOTE | 2025-04-05 16:12 | W.DCSUMMARY ---
Discharge Summary
Discharge Data
Date of Admission: 03/27/25
Date of Discharge: 04/05/25
Total time spent discharging patient (in min): 40
-
Pending Results: No
Hospital Course
Attending physician on day of discharge:
Yadira Strange MD
Admission diagnosis:
Ambulatory dysfunction
Dizziness
Discharge diagnosis:
COVID-positive
Secondary diagnoses:
HTN
Neuropathy
Anemia
Consultations:
Neurology
Procedures:
None
Hospital course:
84F presenting with acute on chronic ambulatory dysfunction, dizziness. MRI brain did not show acute CVA, carotid Doppler was less than 50%, other workup including TSH and random cortisol wnl, lyme neg, CT head repeat 03/31 without acute
abnormality, sometimes but not always had positive orthostatics. She was found to be COVID-positive, also had sore throat and fever, given low Pro-Mansoor and mild symptoms was not given any targeted treatment. He was also given meclizine as needed,
and her pramipexole dose was lowered. She also will have to have the patient ophthalmology evaluation in case this is contributing. She also had anemia for which she was treated with IV iron. She was able to tolerate PT and was discharged to
rehab accordingly.
Physical exam on discharge:
Gen: NAD
HEENT: PERRLA, EOMI, MMM, neck supple
Cards: RRR, no M/G/R
Resp: Lungs CTAB, no W/R/R
GI: soft, NT/ND/NABS
MSK: No edema
Skin: warm and dry, no rash, ulcer or lesions
Heme: No LAD
Psych: Calm
Neuro: AAOx3
Discharge disposition:
SNF
Discharge Plan
-
Patient Disposition: Long Term/SNF
Discharge Diagnosis/Procedures: Ambulatory dysfunction, dizziness, COVID, hyponatremia, hypokalemia
Diet: Regular
Activity: With assistance
Driving Restrictions: Not until seen by your Dr
Other Services: PT and OT
Referrals:
Gaby Reyes MD [Family Provider, Internal Medicine]
Indira Swenson MD [Active, Ophthalmology]
Prescriptions:
New
meclizine 25 mg Tablet
25 mg PO Q8H PRN (Reason: dizziness) Qty: 0 0RF
Chloraseptic Sore Throat 6-10 mg Lozenge
1 jamison PO Q4HPRN PRN (Reason: throat irritation) Qty: 0 0RF
docusate sodium 100 mg Capsule
100 mg PO BIDPRN PRN (Reason: no BM > 24 hours) Qty: 0 0RF
guaifenesin 600 mg Tablet Extended Release 12hr
1,200 mg PO Q12 Qty: 0 0RF
pramipexole 0.5 mg Tablet
1.5 mg PO HS Qty: 0 0RF
benzonatate 100 mg Capsule
200 mg PO TIDPRN PRN (Reason: cough) Qty: 0 0RF
Continued
cyanocobalamin (vitamin B-12) [Vitamin B-12] 1,000 mcg Tablet
1,000 mcg PO DAILY
carvedilol 3.125 mg tablet
3.125 mg PO BID
melatonin 3 mg Tablet
3 mg PO HSPRN PRN (Reason: sleep)
vitamin A-vitamin C-vit E-min Tablet
1 tab PO DAILY
ferrous sulfate [FeroSul] 325 mg (65 mg iron) tablet
325 mg PO QPM
therapeutic multivitamin Tablet
1 tab PO DAILY
magnesium oxide 200 mg magnesium Tablet
200 mg PO HS
Gemtesa 75 mg Tablet
75 mg PO DAILY
Discontinued
pramipexole 1.5 mg tablet
3 mg PO HS
Discharge Orders:
Discharge Patient (As Directed); Ordered 04/03/25
Ordered By: Yadira Strange
Discharge Date and Time
Print Language: FAROESE
[2025-04-05] MEDS: MIRAPEX, GENERIC 1.5 MG PO (19:20)
[2025-04-05] MEDS: HEPARIN SC (19:21)
[2025-04-05] MEDS: FEOSOL 325 MG PO (19:21)
[2025-04-05 19:39] VITALS: BP 145/66
--- NOTE | 2025-04-05 19:57 | PTCARENOTE ---
Pt was picked up by acute care to be taken to [facility]. Pt meds were given per pt request before leaving .
== END 2025-04-05 20:20 ==
LOC: 4 WEST ACU 20:15
PROVIDERS: Clinical Nurse Specialist Family Health; Internal Medicine; ADMITTING PHYSICIAN Hospitalist; ATTENDING PHYSICIAN Internal Medicine; CONSULT PHYSICIAN Psychiatry & Neurology Neurology; EMERGENCY PHYSICIAN Emergency Medicine; FAMILY PHYSICIAN Internal Medicine
DX: R42 Dizziness and giddiness (principal); R26.2 Difficulty in walking, not elsewhere classified; D72.819 Decreased white blood cell count, unspecified; G89.29 Other chronic pain; I10 Essential (primary) hypertension; G25.81 Restless legs syndrome; E53.8 Deficiency of other specified B group vitamins; D64.9 Anemia, unspecified; G47.00 Insomnia, unspecified; G62.9 Polyneuropathy, unspecified; I67.81 Acute cerebrovascular insufficiency; G31.9 Degenerative disease of nervous system, unspecified; U07.1 COVID-19; J34.89 Other specified disorders of nose and nasal sinuses; H91.92 Unspecified hearing loss, left ear; R94.31 Abnormal electrocardiogram [ECG] [EKG]; E61.1 Iron deficiency; E87.1 Hypo-osmolality and hyponatremia; E87.6 Hypokalemia; M54.2 Cervicalgia; J02.9 Acute pharyngitis, unspecified; I34.0 Nonrheumatic mitral (valve) insufficiency; M21.371 Foot drop, right foot; Z85.42 Personal history of malignant neoplasm of other parts of uterus; Z92.21 Personal history of antineoplastic chemotherapy; Z90.49 Acquired absence of other specified parts of digestive tract; Z92.3 Personal history of irradiation; Z98.1 Arthrodesis status; Z97.4 Presence of external hearing-aid; Z98.42 Cataract extraction status, left eye; Z98.41 Cataract extraction status, right eye; Z90.710 Acquired absence of both cervix and uterus; Z79.899 Other long term (current) drug therapy
CPT/HCPCS: 70450; 70551; 71045; 80048; 80053; 82533; 82607; 82728; 82746; 82962; 83540; 83550; 84145; 84443; 85025; 85027; 86618; 87811; 93005; 93880; 96360; 97110; 97116; 97163; 97167; 97530; 99285; G0378; J2916

== ENCOUNTER 2025-05-17 07:06 | Outpatient (RCR) | payer OTHER, SELFPAY | END 2025-05-17 23:59 | disposition home or self-care (01) | LOC: RPT 07:06 | PROVIDERS: ATTENDING PHYSICIAN Internal Medicine; FAMILY PHYSICIAN Family Medicine | DX: R26.89 Other abnormalities of gait and mobility (principal); Z73.6 Limitation of activities due to disability; R26.2 Difficulty in walking, not elsewhere classified; R42 Dizziness and giddiness; M62.81 Muscle weakness (generalized); R26.81 Unsteadiness on feet | CPT/HCPCS: 97163 ==

== ENCOUNTER 2025-06-13 06:55 | Outpatient (RCR) | payer OTHER, SELFPAY | END 2025-06-13 23:59 | disposition home or self-care (01) | LOC: RPT 06:55 | PROVIDERS: ATTENDING PHYSICIAN Internal Medicine; FAMILY PHYSICIAN Family Medicine | DX: R26.89 Other abnormalities of gait and mobility (principal); Z73.6 Limitation of activities due to disability; R26.2 Difficulty in walking, not elsewhere classified; R42 Dizziness and giddiness; M62.81 Muscle weakness (generalized); R26.81 Unsteadiness on feet; R20.2 Paresthesia of skin | CPT/HCPCS: 97110; 97530 ==

== ENCOUNTER 2025-07-10 07:36 | Outpatient (RCR) | payer OTHER, SELFPAY | END 2025-07-10 23:59 | disposition home or self-care (01) | LOC: RPT 07:36 | PROVIDERS: ATTENDING PHYSICIAN Internal Medicine; FAMILY PHYSICIAN Family Medicine | DX: R26.89 Other abnormalities of gait and mobility (principal); Z73.6 Limitation of activities due to disability; R26.2 Difficulty in walking, not elsewhere classified; R42 Dizziness and giddiness; M62.81 Muscle weakness (generalized); R26.81 Unsteadiness on feet; R20.2 Paresthesia of skin | CPT/HCPCS: 97110; 97112; 97530 ==